=== PATIENT | female | born 1945 | race Hispanic/Latino ===

== ENCOUNTER 2018-04-28 18:34 | Emergency (ER) | payer MEDICARE, BC ==
[2018-04-28 19:06] LABS: #Lymphocytes 0.8 thou/uL (1.20-3.40); #Monocytes 0.8 thou/uL (0.11-0.59); #Neutrophils 8.8 thou/uL (1.40-6.50); %Basophils 0.1 % (0.0-1.0); %Eosinophils 0.4 % (0.0-10.0); %Lymphocytes 7.6 % (21.0-51.0); %Monocytes 7.5 % (0.0-10.0); %Neutrophils 84.4 % (42.0-75.0); Hemoglobin 16.3 g/dL (12.0-16.0); Mean Corpuscular HGB CONC 34.1 g/dL (32.0-36.0); Mean Corpuscular Hemoglobin 31.7 pg (27.0-31.0); Mean Corpuscular Volume 92.8 fL (78.0-98.0); Mean Platelet Volume 8.4 fL (7.4-10.4); Platelet Count 127 thou/uL (130-400); RBC Distribution Width 12.4 % (11.5-14.5); Red Blood Cell (RBC) Count 5.14 mill/uL (4.20-5.40); White Blood Cell (WBC) Count 10.4 thou/uL (4.8-10.8)
--- NOTE | 2018-04-28 19:18 | RAD ---
CHEST ONE VIEW: HISTORY: Cough. COMPARISON: 02/04/2016 FINDINGS: There is atherosclerosis of the aorta. Normal cardiac silhouette. Pulmonary vessels and hilum are n ormal. Costophrenic angles are clear. Increased interstitial opacities may be due to diminished leatha g volumes with resultant crowding of the interstitium. Edema and/or infiltrate cannot be excluded. No obvious pneumothorax. Limited evaluation of lung apices. IMPRESSION: Increased interstitial prominence, as above. POS: [facility]
[2018-04-28 19:27] LABS: ALT (SGPT) 24 U/L (8-55); AST (SGOT) 26 U/L (5-34); Albumin 4.1 g/dL (3.4-4.8); Alkaline Phosphatase 54 U/L (40-150); Anion Gap 15 mmol/L (10-20); BUN (Urea Nitrogen) 23 mg/dL (9.8-20.1); CK (CPK) 71 U/L (29-168); Calc. Creatinine Clearance 0 mL/min (70-130); Calcium 9.6 mg/dL (7.8-10.44); Carbon Dioxide 21 mmol/L (23-31); Chloride 105 mmol/L (98-107); Estimated GFR-MDRD 81; Globulin 3.3 g/dL (2.4-3.5); Glucose 96 mg/dL (80-115); Potassium 3.9 mmol/L (3.5-5.1); Protein, Total 7.4 g/dL (6.0-8.3); Sodium 137 mmol/L (136-145)
[2018-04-28 19:31] LABS: CKMB 1.4 ng/mL (0-6.6); Troponin I Less than 0.010 ng/mL (< 0.028)
--- NOTE | 2018-04-28 20:23 | MRI ---
MRI LUMBAR SPINE WITHOUT CONTRAST: HISTORY: Increased low back pain with inability to ambulate x1 week. COMPARISON: None. FINDINGS: Appropriate T1 marrow signal intensity of the lumbar vertebrae. Lumbar spine vertebral body height is maintained. There is no lumbar spine fracture. There is 2 mm of anterolisthesis of L3 upon L4. There is no significant STIR hyperintensity to sugge st vertebral body edema or ligamentous injury. There is degenerative change with loss of disk space height and osteophyte formation, along with subt le Schmorl's nodes, at the T12-L1 disk space. Appropriate signal intensity of the visualized solid organs and psoas muscles. The conus medullaris terminates at the mid T12 level. T11-T12: Minimal posterior disk bugle. No significant central canal stenosis. The neural foramina are patent. T12-L1: Moderate loss of disk space height. Generalized disk bulge without significant central caleb l stenosis. The right neural foramen is moderately narrowed. The left neural foramen is patent. L1-L2: Mild loss of disk space height and disk desiccation. Minimal generalized disk bulge. No sig nificant central canal stenosis. The neural foramina are patent bilaterally. L2-L3: Adequate disk hydration. No significant loss of disk space height. Small left and right par acentral disk bulges. Mild ligamentum flavum thickening and facet hypertrophy. Mild central canal s tenosis. The neural foramina are patent bilaterally. L3-L4: Desiccation with mild loss of disk space height. Broad-based disk bulge, ligamentum flavum t hickening, and facet hypertrophy result in mild central canal stenosis. The right neural foramen is patent. Mild left foraminal narrowing. L4-L5: Desiccation without significant loss of disk space height. Minimal generalized disk bulge, l igamentum flavum thickening, and facet hypertrophy. No significant central canal stenosis. The neur al foramina are patent bilaterally. L5-S1: Minimal disk desiccation without significant loss of disk space height. No significant centr al canal stenosis. The neural foramina are patent. IMPRESSION: 1. No significant central canal stenosis or significant neural foraminal narrowing. 2. Degenerative changes of the lumbar spine, as described above. POS: [facility]
== END 2018-04-29 00:11 ==
LOC: ERS 18:34
DX: M54.5 Low back pain (principal); R53.1 Weakness; E78.5 Hyperlipidemia, unspecified; I10 Essential (primary) hypertension; Z79.899 Other long term (current) drug therapy
CPT/HCPCS: 36415; 71045; 72148; 80053; 82553; 84484; 85025; 87804; 93005; 96360

== ENCOUNTER 2018-07-05 08:28 | Outpatient (CLI) | payer MEDICARE, BC ==
--- NOTE | 2018-07-05 10:54 | MRI ---
MRI BRAIN WITH AND WITHOUT CONTRAST: HISTORY: Parkinson disease. Difficulty walking since January 2018. TECHNIQUE: MRI brain is performed with and without intravenous Gadolinium administration. Multisequential, mult iplanar imaging is performed. FINDINGS: No hemorrhage on the axial gradient echo sequence. The calvarium has a normal T1 marrow signal intensity. Midline brain parenchymal structures are unre markable. Central arterial flow voids are maintained. Absent restricted diffusion. There is abnormal T2 and FLAIR white matter hyperintensity, along with sulcal effacement involving th e right temporal and frontal lobes. There is mass effect upon the right lateral ventricle. There is 1 cm of right to left subfalcine herniation. This mass effect is associated with an extraaxial mass that is centered in the right middle cranial fossa. There is evidence of dural enhancement. There also appears to be erosion of the right calvarium, at the level of the middle cranial fossa. The les ion is intrinsically isointense on the T2 weighted images. There is associated homogeneous enhanceme nt. The lesion measures 3.5 cm mediolateral x 2.9 cm anteroposterior x 2.6 cm craniocaudal. There i s a second extraaxial lesion that is right parafalcine in location. This lesion measures 1.9 x 1.6 x 1.7 cm. There is no significant mass effect or associated edema. A small focus of enhancement along the anterior aspect of the falx may represent a punctate meningiom a. There is abnormal enhancement in the right infratemporal fossa, expanding to the superior right masti cator space. There is also abnormal enhancement involving the lateral right orbital apex and extendi ng anteriorly to the extraconal space, laterally, on the right. There is right-sided exophthalmus. IMPRESSION: 1. Parafalcine/falcine meningiomas without associated mass effect or abnormality. 2. Extraaxial mass centered in the right middle cranial fossa, which has an aggressive appearance. There is associated mass effect and midline shift, as described above. There is extensive edema of t he right cerebrum. This lesion causes some erosive changes of the overlying calvarium. There is ext ension of this lesion into the right infratemporal fossa and superior right client account specialist space. Additi onally, there is extension of this lesion along the lateral aspect of the right orbit, as described a corin. Findings may represent malignant meningioma or hemangiopericytoma. A neurosurgical consultati on is recommended, given the degree of right to left subfalcine herniation, as well as extracranial i nvolvement. The results of the study were discussed with Dr. Andujar on 07/05/2018 at 10:01 a.m. CODE [facility] POS: [facility]
[2018-07-05] MEDS ORDERED: Gadobenate Dimeglumine 529 MG/1 ML (20ML VIAL) ONE (13:38)
--- NOTE | 2018-07-05 14:52 | NM ---
NUCLEAR MEDICINE BRAIN IMAGING: Date: 07/05/18 HISTORY: Parkinson's disease. TECHNIQUE: A DaTscan with axial tomographic images of the brain obtained 3 hours following the intravenous admin istration of 5.5 mCi iodine-123 Ioflupane. 130 mg of potassium iodide were given orally 1 hour prior to injection of the radiopharmaceutical. FINDINGS: There is normal, symmetric uptake in the striata bilaterally, demonstrating symmetric, crescent-shape d, focal regions of activity mirrored about the median plane. IMPRESSION: Normal exam. POS: [facility]
== END 2018-07-05 08:29 | disposition home or self-care (01) ==
LOC: MRI 08:28
PROVIDERS: ATTEND Psychiatry & Neurology Neurology
DX: G20 Parkinson's disease (principal); D32.0 Benign neoplasm of cerebral meninges; G93.5 Compression of brain
CPT/HCPCS: 70553; 78607; 82565; A9584; A9577

== ENCOUNTER 2018-07-25 00:12 | Outpatient (CLI) | payer MEDICARE, BC ==
[2018-07-25 11:48] LABS: Anion Gap 16 mmol/L (10-20); BUN (Urea Nitrogen) 39 mg/dL (9.8-20.1); Calc. Creatinine Clearance 0 mL/min (70-130); Calcium 9.2 mg/dL (7.8-10.44); Carbon Dioxide 23 mmol/L (23-31); Chloride 101 mmol/L (98-107); Estimated GFR-MDRD Greater than 90; Glucose 117 mg/dL (80-115); Potassium 4.5 mmol/L (3.5-5.1); Sodium 135 mmol/L (136-145)
[2018-07-25 12:29] LABS: Hemoglobin 17.5 g/dL (12.0-16.0); Mean Corpuscular HGB CONC 31.9 g/dL (32.0-36.0); Mean Corpuscular Hemoglobin 30.9 pg (27.0-31.0); Mean Corpuscular Volume 96.9 fL (78.0-98.0); Mean Platelet Volume 7.5 fL (7.4-10.4); Platelet Count 107 thou/uL (130-400); RBC Distribution Width 13.8 % (11.5-14.5); Red Blood Cell (RBC) Count 5.67 mill/uL (4.20-5.40); White Blood Cell (WBC) Count 14.5 thou/uL (4.8-10.8)
--- NOTE | 2018-07-26 08:03 | EKG ---
Test Reason : Blood Pressure : / mmHG Vent. Rate : 081 BPM Atrial Rate : 081 BPM P-R Int : 146 ms QRS Dur : 074 ms QT Int : 330 ms P-R-T Axes : 069 078 048 degrees QTc Int : 383 ms Normal sinus rhythm Normal ECG When compared with ECG of 28-APR-2018 18:47, No significant change was found Confirmed by HU COTTER ([id number]) on 07/26/2018 8:03:35 AM Referred By: MEME Confirmed By:HU COTTRE
== END 2018-07-25 00:13 | disposition home or self-care (01) ==
LOC: LABBT 00:12
PROVIDERS: ATTEND Neurological Surgery
DX: Z01.818 Encounter for other preprocedural examination (principal); D49.6 Neoplasm of unspecified behavior of brain
CPT/HCPCS: 80048; 85027; 93005; 93010

== ENCOUNTER 2018-07-25 10:00 | Inpatient (IN) | payer MEDICARE, BC ==
[2018-07-26] MEDS ORDERED: Bacitracin Zinc Ointment 30 gm TUBE ONE (06:26)
[2018-07-26] MEDS ORDERED: Fentanyl 100 MCG/2 ML VIAL ONE ×2 (07:06→10:40)
[2018-07-26] MEDS ORDERED: Fentanyl 250 MCG/5 ML VIAL ONE (07:06)
[2018-07-26] MEDS ORDERED: Mannitol 12.5 GM/50 ML ONE (07:51)
[2018-07-26] MEDS ORDERED: hydrALAZINE 20 MG/ML VIAL ONE (10:35)
[2018-07-26] MEDS ORDERED: Ondansetron HCl/PF 4 MG/2 ML Vial IVP PRN (11:20)
[2018-07-26] MEDS ORDERED: Promethazine HCl 25 MG/ML VIAL SLOW IVP PRN (11:20)
[2018-07-26] MEDS ORDERED: Promethazine HCl 25 MG/ML VIAL IM PRN ×2 (11:20→14:15)
--- NOTE | 2018-07-26 11:32 | OP ---
DATE OF PROCEDURE: 07/26/2018 THERAPY MANAGER: Triny Cornejo PA-C. PROCEDURES PERFORMED: Right supratentorial craniotomy, resection meningioma. DESCRIPTION OF PROCEDURE: The patient was brought to the operating room and intubated. She was positioned supine, head turned to the left on the Endy wet process miller head exposing the right frontotemporal region. Standard incision was made, and the scalp reflected anteriorly. Some abnormal specimen was identified beneath the temporalis muscle near the zygomatic arch. This was sent for pathology. We felt this was neoplastic or uncertain as to the nature of it. We did not attempt to resect any tissue outside the craniotomy exposure, but this did seem to be potentially some neoplasm extending inferiorly into the soft tissues of the facial region. We next performed a standard right frontotemporal craniotomy and immediately encountered very thickened hypervascular bone in the temporal region. The frontal craniotomy was removed in one piece, but the temporal craniotomy could not be given the thick nature of the bone. Some areas of bone were clearly invaded by neoplasm and another was only thickened and hypervascular. Ultimately, we drilled away the residual temporal bone to obtain adequate exposure with substantial difficulty involving substantial bleeding. We next opened the dura, which again was hypervascular and highly thickened in multiple locations. We sent additional specimen for frozen examination, which suggested a more benign neoplastic process consistent with meningioma; although, the pathologist expressed a high degree of uncertainty. We next circumferentially dissected tumor from brain and the tumor had a very good plane from the surrounding brain. We sequentially debulked tumor and developed the plane around the brain and ultimately, a gross total resection of intracranial tumor was achieved. We did remove the tumor as it invaded into the floor of the middle cranial fossa, but ultimately it did extend through the floor of the middle cranial fossa in several locations, where it could not be accessed. Maximum hemostasis was then secured with some difficulty given the hypervascular dura and surrounding tissues. The dura was then reapproximated with DuraGen artificial dura. The frontal skull was replaced with titanium micro plates and screws, and the wound was then closed in anatomic layers. Job ID: [id number]
[2018-07-26] MEDS ORDERED: Mag-Al 1200 mg/1200 mg/30 ML UDCUP PO PRN (14:15)
[2018-07-26] MEDS ORDERED: Ondansetron PF 4 MG/2 ML Vial IVP PRN (14:15)
[2018-07-26] MEDS ORDERED: diphenhydrAMINE 50 MG CAP PO PRN (14:15)
[2018-07-26] MEDS ORDERED: Acetaminophen 325 MG TAB PO PRN (14:15)
[2018-07-26] MEDS ORDERED: hydrALAZINE 20 MG/ML VIAL SLOW IVP PRN (14:15)
[2018-07-26] MEDS ORDERED: Docusate 100 MG CAP PO PRN (14:15)
[2018-07-26] MEDS ORDERED: Morphine 4 MG/ML VIAL SLOW IVP PRN (14:15)
[2018-07-26] MEDS ORDERED: Labetalol HCl 100 MG/20 ML VIAL SLOW IVP PRN (14:15)
[2018-07-26] MEDS ORDERED: diphenhydrAMINE 50 MG/ML VIAL IVP PRN (14:15)
[2018-07-26] MEDS ORDERED: Promethazine 25 MG TAB PO PRN (14:15)
[2018-07-26] MEDS ORDERED: Promethazine HCl 12.5 MG SUPP PR PRN (14:18)
[2018-07-26] MEDS ORDERED: Acetaminophen 650 MG Suppository PR PRN (14:24)
[2018-07-26] MEDS ORDERED: Morphine 2 MG/ML SYRINGE SLOW IVP PRN (14:30)
[2018-07-26] MEDS ORDERED: Lidocaine 1% PF 5 ML VIAL ONE (15:43)
[2018-07-26] MEDS ORDERED: Ondansetron PF 4 MG/2 ML Vial ONE (15:43)
[2018-07-26] MEDS ORDERED: Dexamethasone 20 MG/5 ML VIAL ONE (15:43)
[2018-07-26] MEDS ORDERED: Esmolol 100 MG/10 ML VIAL ONE (15:43)
[2018-07-26] MEDS ORDERED: Glycopyrrolate 0.2 MG/ML 5 ML SYRINGE ONE (15:43)
[2018-07-26] MEDS ORDERED: Ketorolac Tromethamine 30 MG/ML VIAL ONE (15:43)
[2018-07-26] MEDS ORDERED: Rocuronium Bromide 10 MG/ML (10ML VIAL) ONE (15:43)
[2018-07-26] MEDS ORDERED: PROPOFOL 200 MG/20 ML VIAL ONE (15:43)
[2018-07-26] MEDS: Sodium Chloride 0.9% 1,000 ML IV SCH ×2 (15:46→17:54)
[2018-07-26] MEDS: HYDROcodone/Acetaminophen 10/325 mg Tablet PO PRN (18:25)
[2018-07-26] MEDS ORDERED: Loratadine/Pseudoephedrine 10/240 mg Tablet PO PRN (19:54)
[2018-07-26] MEDS: Exemestane 25 MG TAB PO SCH (20:26)
[2018-07-26] MEDS: Calcium Carbonate + Vit D 1 TAB PO SCH (20:27)
[2018-07-26] MEDS: Acetaminophen ER (8hr) 650 MG TAB PO SCH (20:27)
[2018-07-26] MEDS ORDERED: Loratadine/Pseudoephedrine 10/240 mg Tablet PO SCH (21:00)
[2018-07-26] MEDS ORDERED: Famotidine/PF 20 mg/2ml Vial SLOW IVP SCH (21:00)
[2018-07-26] MEDS: CEFAZOLIN 2 GM in Premix Bag 1 BAG IVPB SCH (21:41)
[2018-07-26] MEDS: Famotidine 20 MG TAB PO SCH (21:41)
--- NOTE | 2018-07-26 21:57 | PDOC.PN ---
- Subjective Encounter Start Date: 07/26/18 Encounter Start Time: 19:00 Patient seen and examined for med mngt. No CP/SOB/Palpitations/focal neuro deficits. No new complaints. No overnight events - Objective MAR Reviewed: Yes Vital Signs & Weight: Vital Signs (12 hours) Temp Pulse Ox 07/26/18 18:55 95 07/26/18 15:00 98.4 F 07/26/18 14:30 95 Weight Weight 149 lb 14.629 oz Most Recent Monitor Data Heart Rate from ECG 74 NIBP 117/51 NIBP BP-Mean 73 Respiration from ECG 15 SpO2 96 I&O: 07/25/18 07/26/18 07/27/18 06:59 06:59 06:59 Intake Total 846 Output Total 525 Balance 321 Result Diagrams: 07/27/18 05:27 EKG Reviewed by me: Yes (Tele SR) Phys Exam - Physical Examination Constitutional: NAD Respiratory: no wheezing, no rhonchi Cardiovascular: RRR, no rub Gastrointestinal: soft, non-tender, positive bowel sounds Musculoskeletal: no edema Neurological: moves all 4 limbs Dx/Plan - Plan DVT proph w/SCDs 1. HTN 2. HLD 3. h/o Breast Ca 4. Obesity BMI 36.1 5. CKD 2 PLAN: Hold HCTZ Add low dose Lisinopril Cont current meds as below BMP in AM Will follow. Thank you for this consultation. Full code. DPOA - self Review of Systems - Review of Systems Respiratory: negative: Cough, Dry, Shortness of Breath, Hemoptysis, SOB with Excertion, Pleuritic Pain, Sputum, Wheezing Cardiovascular: negative: chest pain, palpitations, orthopnea, paroxysmal nocturnal dyspnea, edema, light headedness, other - Medications/Allergies Allergies/Adverse Reactions: Allergies Allergy/AdvReac Type Severity Reaction Status Date / Time tramadol Allergy Nausea Verified 07/25/18 10:30 Medications: Current Medications Acetaminophen (Tylenol) 650 mg PO Q4H PRN PRN Reason: HEADACHE, FEVER > 101 OR PAIN Acetaminophen (Tylenol Er (8hr Arthritis Pain)) 650 mg PO HS [facility] Last Admin: 07/26/18 20:27 Dose: 650 mg Acetaminophen (Tylenol) 650 mg [place] Q4H PRN PRN Reason: Headache/Fever/Mild Pain Hydrocodone Bitart/Acetaminophen (Neon 10/325) 1 tab PO Q4H PRN PRN Reason: Pain 4-6 Last Admin: 07/26/18 18:25 Dose: 1 tab Hydrocodone Bitart/Acetaminophen (Neon 10/325) 2 tab PO Q4H PRN PRN Reason: Pain 7-10 Al Hydroxide/Mg Hydroxide (Maalox) 30 ml PO Q6H PRN PRN Reason: Heartburn or Indigestion Ascorbic Acid (Vitamin C) 500 mg PO QAM [facility] Calcium/Vitamin D (Caltrate 600 + Vit D) 1 tab PO BID [facility] Last Admin: 07/26/18 20:27 Dose: 1 tab Cyanocobalamin (Vitamin B-12) 1,000 mcg PO QAM [facility] Diphenhydramine HCl (Benadryl) 50 mg PO HSPRN PRN PRN Reason: Itching & Insomnia Diphenhydramine HCl (Benadryl) 50 mg IVP Q6H PRN PRN Reason: Itching & Insomnia Docusate Sodium (Colace) 100 mg PO BIDPRN PRN PRN Reason: Constipation Exemestane (Aromasin) 25 mg PO HS [facility] Last Admin: 07/26/18 20:26 Dose: 25 mg Famotidine (Pepcid) 20 mg PO BID [facility] Last Admin: 07/26/18 21:41 Dose: 20 mg Hydralazine HCl (Apresoline) 5 mg SLOW IVP Q15MIN PRN PRN Reason: FOR SBP > 140 Sodium Chloride (Normal Saline 0.9%) 1,000 mls @ 75 mls/hr IV .[id number] [facility] Last Admin: 07/26/18 17:54 Dose: 1,000 mls Cefazolin Sodium/Dextrose 2 gm (/ Device) 50 mls @ 100 mls/hr IVPB Q8HR [facility] Stop: 07/27/18 06:29 Last Admin: 07/26/18 21:41 Dose: 50 mls Labetalol HCl (Labetalol Hcl) 10 mg SLOW IVP Q15MIN PRN PRN Reason: FOR SBP > 140 Lisinopril (Zestril) 10 mg PO DAILY [facility] Loratadine/Pseudoephedrine Sulfate (Claritin-D 24 Hour) 1 tab PO HS PRN PRN Reason: Congestion Morphine Sulfate (Morphine) 4 mg SLOW IVP Q1H PRN PRN Reason: SEVERE BREAKTHROUGH PAIN Morphine Sulfate (Morphine) 2 mg SLOW IVP Q1H PRN PRN Reason: FOR MOD BREAKTHROUGH PAIN Ondansetron HCl (Zofran) 4 mg IVP Q8H PRN PRN Reason: Nausea/Vomiting Promethazine HCl (Phenergan) 12.5 mg IM Q4H PRN PRN Reason: Nausea Promethazine HCl (Phenergan) 12.5 mg PO Q4H PRN PRN Reason: Nausea Promethazine HCl (Phenergan Suppository) 12.5 mg [place] Q4H PRN PRN Reason: Nausea Sodium Chloride (Flush - Normal Saline) 10 ml IVF Q12HR [facility] Last Admin: 07/26/18 21:41 Dose: 10 ml Sodium Chloride (Flush - Normal Saline) 10 ml IVF PRN PRN PRN Reason: Saline Flush
[2018-07-27 06:10] VITALS: BMI 36.1
[2018-07-27] MEDS: CEFAZOLIN 2 GM in Premix Bag 1 BAG IVPB SCH (06:12)
--- NOTE | 2018-07-27 06:27 | PRG ---
DATE OF SERVICE: SUBJECTIVE: The patient is a 72-year-old female, postoperative day #1, status post craniotomy with right temporal tumor resection. Following the surgery, she was transitioned to the ICU, where she was monitored closely and her pain was well controlled with p.o. medications. She did have initially high urine output; however, this was not unexpected secondary to mannitol given in the OR. Her blood pressure has remained well controlled and is currently 126/99. The patient is tolerating a regular diet. She does have a Danielson catheter still in place. She was able to get up to the side of the bed this morning without any difficulty. PHYSICAL EXAMINATION: GENERAL: The patient is awake and alert, oriented x4. HEENT: Pupils are equal and reactive to light. She does have some ecchymosis and soft tissue swelling on the right side of the face. EXTREMITIES: She has free active range of motion of all extremities. NEUROLOGIC: No focal motor weakness is appreciated. PLAN: We will plan to remove the patient's Danielson catheter and transition her to the floor later today. We will have her work with physical and occupational therapy with possible need for inpatient rehabilitation depending on her progress. We have also discussed possibly will be able to go home with Home Health. Job ID: [id number]
[2018-07-27 06:52] LABS: Anion Gap 10 mmol/L (10-20); BUN (Urea Nitrogen) 20 mg/dL (9.8-20.1); Calc. Creatinine Clearance 88 mL/min (70-130); Calcium 8.2 mg/dL (7.8-10.44); Carbon Dioxide 27 mmol/L (23-31); Chloride 101 mmol/L (98-107); Estimated GFR-MDRD Greater than 90; Glucose 144 mg/dL (80-115); Magnesium 1.9 mg/dL (1.6-2.6); Potassium 4.3 mmol/L (3.5-5.1); Sodium 134 mmol/L (136-145)
--- NOTE | 2018-07-27 07:42 | CT ---
CT OF HEAD: INDICATION: Status post craniotomy. FINDINGS: Evidence of a right frontoparietal craniotomy with underlying pneumocephalus and evidence of resectio n of a previously documented mass within the right middle cranial fossa. There is postoperative bloo d, air, and edema of the anterior to right temporal lobe resection bed. There is overlying extraaxia l blood and air with associated mass effect and sulcal effacement. Extraaxial collection underlying craniotomy flap measured approximately 1 cm in thickness. Leftward midline shift at the level of sep kenzie pellucidum measures 7 mm. Redemonstration of heavily calcified meningioma at the anterior right parafalcine region. The ventricular system is effaced and displaced as a result of prominent degree of postoperative osmar a. There is marked osseous hypertrophy of the right skull base adjacent site of the previous mass. IMPRESSION: 1. Postoperative findings with a prominent degree of cerebral edema producing mass effect and midlin e shift as discussed above. There is also postoperative hematoma, both intraaxial and extraaxial. 2. Heavily calcified right parafalcine meningioma remains. Recommend continued followup. POS: [facility]
[2018-07-27] MEDS ORDERED: Hydrochlorothiazide 25 MG TAB PO SCH (09:00)
[2018-07-27] MEDS: Sodium Chloride 0.9% 1,000 ML IV SCH (09:02)
[2018-07-27] MEDS: Cyanocobalamin (Vitamin B-12) 1,000 MCG TAB PO SCH (09:04)
[2018-07-27] MEDS: Calcium Carbonate + Vit D 1 TAB PO SCH ×2 (09:04→22:41)
[2018-07-27] MEDS: Famotidine 20 MG TAB PO SCH ×2 (09:05→22:41)
[2018-07-27] MEDS: Lisinopril 10 MG TAB PO SCH (09:07)
[2018-07-27] MEDS: Ascorbic Acid 500 mg Chewable Tablet PO SCH (09:08)
[2018-07-27] MEDS: HYDROcodone/Acetaminophen 10/325 mg Tablet PO PRN (14:19)
--- NOTE | 2018-07-27 19:00 | PDOC.PN ---
- Subjective Encounter Start Date: 07/27/18 Encounter Start Time: 09:30 Patient seen and examined for med mngt. No new complaints. No new focal deficits. No overnight events - Objective MAR Reviewed: Yes Vital Signs & Weight: Vital Signs (12 hours) Temp Pulse Pulse BP BP BP Pulse Ox 07/27/18 16:15 97 07/27/18 11:00 98.1 F 07/27/18 10:20 70 90 124/62 149/58 H 07/27/18 10:19 75 124/58 L 149/58 H 07/27/18 09:07 108/54 L 07/27/18 08:00 87 L 07/27/18 07:00 98.4 F Weight Weight 149 lb 14.629 oz Most Recent Monitor Data Heart Rate from ECG 83 NIBP 134/59 NIBP BP-Mean 84 Respiration from ECG 18 SpO2 96 I&O: 07/26/18 07/27/18 07/28/18 06:59 06:59 06:59 Intake Total 1246 750 Output Total 1200 595 Balance 46 155 Result Diagrams: 07/27/18 05:27 EKG Reviewed by me: Yes (Tele SR) Phys Exam - Physical Examination Constitutional: NAD Respiratory: no wheezing, no rhonchi Cardiovascular: RRR, no rub Gastrointestinal: soft, non-tender, positive bowel sounds Musculoskeletal: no edema Dx/Plan - Plan DVT proph w/SCDs 1. HTN 2. HLD 3. h/o Breast Ca 4. Obesity BMI 36.1 5. CKD 2 PLAN: HCTZ on hold Cont low dose Lisinopril Cont current meds as below Review of Systems - Review of Systems Respiratory: negative: Cough, Dry, Shortness of Breath, Hemoptysis, SOB with Excertion, Pleuritic Pain, Sputum, Wheezing Cardiovascular: negative: chest pain, palpitations, orthopnea, paroxysmal nocturnal dyspnea, edema, light headedness, other - Medications/Allergies Allergies/Adverse Reactions: Allergies Allergy/AdvReac Type Severity Reaction Status Date / Time tramadol Allergy Nausea Verified 07/25/18 10:30 Medications: Current Medications Acetaminophen (Tylenol) 650 mg PO Q4H PRN PRN Reason: HEADACHE, FEVER > 101 OR PAIN Acetaminophen (Tylenol Er (8hr Arthritis Pain)) 650 mg PO HS [facility] Last Admin: 07/26/18 20:27 Dose: 650 mg Acetaminophen (Tylenol) 650 mg [place] Q4H PRN PRN Reason: Headache/Fever/Mild Pain Hydrocodone Bitart/Acetaminophen ([employer] 10/325) 1 tab PO Q4H PRN PRN Reason: Pain 4-6 Last Admin: 07/26/18 18:25 Dose: 1 tab Hydrocodone Bitart/Acetaminophen ([employer] 10/325) 2 tab PO Q4H PRN PRN Reason: Pain 7-10 Last Admin: 07/27/18 14:19 Dose: 2 tab Al Hydroxide/Mg Hydroxide (Maalox) 30 ml PO Q6H PRN PRN Reason: Heartburn or Indigestion Ascorbic Acid (Vitamin C) 500 mg PO QAM [facility] Last Admin: 07/27/18 09:08 Dose: 500 mg Calcium/Vitamin D (Caltrate 600 + Vit D) 1 tab PO BID [facility] Last Admin: 07/27/18 09:04 Dose: 1 tab Cyanocobalamin (Vitamin B-12) 1,000 mcg PO QAM [facility] Last Admin: 07/27/18 09:04 Dose: 1,000 mcg Diphenhydramine HCl (Benadryl) 50 mg PO HSPRN PRN PRN Reason: Itching & Insomnia Diphenhydramine HCl (Benadryl) 50 mg IVP Q6H PRN PRN Reason: Itching & Insomnia Docusate Sodium (Colace) 100 mg PO BIDPRN PRN PRN Reason: Constipation Exemestane (Aromasin) 25 mg PO HS [facility] Last Admin: 07/26/18 20:26 Dose: 25 mg Famotidine (Pepcid) 20 mg PO BID [facility] Last Admin: 07/27/18 09:05 Dose: 20 mg Hydralazine HCl (Apresoline) 5 mg SLOW IVP Q15MIN PRN PRN Reason: FOR SBP > 140 Labetalol HCl (Labetalol Hcl) 10 mg SLOW IVP Q15MIN PRN PRN Reason: FOR SBP > 140 Lisinopril (Zestril) 10 mg PO DAILY [facility] Last Admin: 07/27/18 09:07 Dose: 10 mg Loratadine/Pseudoephedrine Sulfate (Claritin-D 24 Hour) 1 tab PO HS PRN PRN Reason: Congestion Morphine Sulfate (Morphine) 4 mg SLOW IVP Q1H PRN PRN Reason: SEVERE BREAKTHROUGH PAIN Morphine Sulfate (Morphine) 2 mg SLOW IVP Q1H PRN PRN Reason: FOR MOD BREAKTHROUGH PAIN Ondansetron HCl (Zofran) 4 mg IVP Q8H PRN PRN Reason: Nausea/Vomiting Promethazine HCl (Phenergan) 12.5 mg IM Q4H PRN PRN Reason: Nausea Promethazine HCl (Phenergan) 12.5 mg PO Q4H PRN PRN Reason: Nausea Promethazine HCl (Phenergan Suppository) 12.5 mg [place] Q4H PRN PRN Reason: Nausea Sodium Chloride (Flush - Normal Saline) 10 ml IVF Q12HR [facility] Last Admin: 07/27/18 09:10 Dose: 10 ml Sodium Chloride (Flush - Normal Saline) 10 ml IVF PRN PRN PRN Reason: Saline Flush
[2018-07-27] MEDS: Acetaminophen ER (8hr) 650 MG TAB PO SCH (22:41)
[2018-07-27] MEDS: Exemestane 25 MG TAB PO SCH (22:42)
[2018-07-28] MEDS: Famotidine 20 MG TAB PO SCH ×2 (08:34→21:17)
[2018-07-28] MEDS: Ascorbic Acid 500 mg Chewable Tablet PO SCH (08:34)
[2018-07-28] MEDS: Lisinopril 10 MG TAB PO SCH (08:34)
[2018-07-28] MEDS: Cyanocobalamin (Vitamin B-12) 1,000 MCG TAB PO SCH (08:35)
[2018-07-28] MEDS: Calcium Carbonate + Vit D 1 TAB PO SCH ×2 (08:35→21:17)
--- NOTE | 2018-07-28 10:12 | PDOC.PN ---
- Subjective Encounter Start Date: 07/28/18 Encounter Start Time: 07:45 -: old records requested/rev Patient seen and examined. No new complaints. No overnight events she has mild surgical pain, no fever, no headache - Objective MAR Reviewed: Yes Vital Signs & Weight: Vital Signs (12 hours) Temp Pulse Resp BP BP Pulse Ox 07/28/18 08:34 130/69 07/28/18 07:59 98.5 F 66 12 130/69 96 07/28/18 04:00 99.7 F H 70 16 126/78 94 L 07/28/18 00:00 98.6 F 99 16 127/74 94 L Weight Weight 149 lb 14.629 oz Most Recent Monitor Data Heart Rate from ECG 83 NIBP 134/59 NIBP BP-Mean 84 Respiration from ECG 18 SpO2 96 I&O: 07/27/18 07/28/18 07/29/18 06:59 06:59 06:59 Intake Total 1246 750 Output Total 1200 595 Balance 46 155 Result Diagrams: 07/27/18 05:27 Radiology Reviewed by me: Yes (CT brain noted) Phys Exam - Physical Examination Constitutional: NAD HEENT: moist MMs, sclera anicteric right raccoon eye Neck: no nodes, no JVD, supple Respiratory: no wheezing, no rales, no rhonchi Cardiovascular: RRR, no significant murmur, no rub Gastrointestinal: soft, non-tender, no distention, positive bowel sounds obesity+ Musculoskeletal: no edema, pulses present SCD+ Neurological: non-focal, normal sensation Lymphatic: no nodes Psychiatric: normal affect, A&O x 3 Skin: no rash, normal turgor Dx/Plan (1) S/P resection of meningioma Code(s): Z98.890 - OTHER SPECIFIED POSTPROCEDURAL STATES; Z86.018 - PERSONAL HISTORY OF OTHER BENIGN NEOPLASM Status: Acute (2) Status post craniotomy Status: Acute (3) CKD (chronic kidney disease) stage 2, GFR 60-89 ml/min Code(s): N18.2 - CHRONIC KIDNEY DISEASE, STAGE 2 (MILD) Status: Chronic (4) HLD (hyperlipidemia) Code(s): E78.5 - HYPERLIPIDEMIA, UNSPECIFIED Status: Chronic (5) HTN (hypertension) Code(s): I10 - ESSENTIAL (PRIMARY) HYPERTENSION Status: Chronic (6) Obesity (BMI 30-39.9) Code(s): E66.9 - OBESITY, UNSPECIFIED Status: Chronic - Plan cont current plan of care, PT/OT, licensed social worker, DVT proph w/SCDs * continue post operative care as per neurosurgeon * medically stable with current treatment * medication reviewed as below * symptomatic treatment. * discharge planning Review of Systems - Review of Systems ENT: negative: Ear Pain, Ear Discharge, Nose Pain, Nose Discharge, Nose Congestion, Mouth Pain, Mouth Swelling, Throat Pain, Throat Swelling, Other Respiratory: negative: Cough, Dry, Shortness of Breath, Hemoptysis, SOB with Excertion, Pleuritic Pain, Sputum, Wheezing Cardiovascular: negative: chest pain, palpitations, orthopnea, paroxysmal nocturnal dyspnea, edema, light headedness, other Gastrointestinal: negative: Nausea, Vomiting, Abdominal Pain, Diarrhea, Constipation, Melena, Hematochezia, Other Genitourinary: negative: Dysuria, Frequency, Incontinence, Hematuria, Retention , Other Musculoskeletal: negative: Neck Pain, Shoulder Pain, Arm Pain, Back Pain, Hand Pain, Leg Pain, Foot Pain, Other Skin: negative: Rash, Lesions, Andrea, Bruising, Other - Medications/Allergies Allergies/Adverse Reactions: Allergies Allergy/AdvReac Type Severity Reaction Status Date / Time tramadol Allergy Nausea Verified 07/25/18 10:30 Medications: Current Medications Acetaminophen (Tylenol) 650 mg PO Q4H PRN PRN Reason: HEADACHE, FEVER > 101 OR PAIN Acetaminophen (Tylenol Er (8hr Arthritis Pain)) 650 mg PO [facility] Last Admin: 07/27/18 22:41 Dose: 650 mg Acetaminophen (Tylenol) 650 mg SD Q4H PRN PRN Reason: Headache/Fever/Mild Pain Hydrocodone Bitart/Acetaminophen ([place] 10/325) 1 tab PO Q4H PRN PRN Reason: Pain 4-6 Last Admin: 07/26/18 18:25 Dose: 1 tab Hydrocodone Bitart/Acetaminophen ([place] 10/325) 2 tab PO Q4H PRN PRN Reason: Pain 7-10 Last Admin: 07/27/18 14:19 Dose: 2 tab Al Hydroxide/Mg Hydroxide (Maalox) 30 ml PO Q6H PRN PRN Reason: Heartburn or Indigestion Ascorbic Acid (Vitamin C) [address] [facility] Last Admin: 07/28/18 08:34 Dose: 500 mg Calcium/Vitamin D (Caltrate 600 + Vit D) 1 tab PO BID [facility] Last Admin: 07/28/18 08:35 Dose: 1 tab Cyanocobalamin (Vitamin B-12) 1,000 mcg PO QAM [facility] Last Admin: 07/28/18 08:35 Dose: 1,000 mcg Diphenhydramine HCl (Benadryl) 50 mg PO HSPRN PRN PRN Reason: Itching & Insomnia Diphenhydramine HCl (Benadryl) 50 mg IVP Q6H PRN PRN Reason: Itching & Insomnia Docusate Sodium (Colace) 100 mg PO BIDPRN PRN PRN Reason: Constipation Exemestane (Aromasin) 25 mg PO HS [facility] Last Admin: 07/27/18 22:42 Dose: 25 mg Famotidine (Pepcid) 20 mg PO BID [facility] Last Admin: 07/28/18 08:34 Dose: 20 mg Hydralazine HCl (Apresoline) 5 mg SLOW IVP Q15MIN PRN PRN Reason: FOR SBP > 140 Labetalol HCl (Labetalol Hcl) 10 mg SLOW IVP Q15MIN PRN PRN Reason: FOR SBP > 140 Lisinopril (Zestril) 10 mg PO DAILY [facility] Last Admin: 07/28/18 08:34 Dose: 10 mg Loratadine/Pseudoephedrine Sulfate (Claritin-D 24 Hour) 1 tab PO HS PRN PRN Reason: Congestion Morphine Sulfate (Morphine) 4 mg SLOW IVP Q1H PRN PRN Reason: SEVERE BREAKTHROUGH PAIN Morphine Sulfate (Morphine) 2 mg SLOW IVP Q1H PRN PRN Reason: FOR MOD BREAKTHROUGH PAIN Ondansetron HCl (Zofran) 4 mg IVP Q8H PRN PRN Reason: Nausea/Vomiting Promethazine HCl (Phenergan) 12.5 mg IM Q4H PRN PRN Reason: Nausea Promethazine HCl (Phenergan) 12.5 mg PO Q4H PRN PRN Reason: Nausea Promethazine HCl (Phenergan Suppository) 12.5 mg SD Q4H PRN PRN Reason: Nausea Sodium Chloride (Flush - Normal Saline) 10 ml IVF Q12HR [facility] Last Admin: 02/21/19 22:45 Dose: 10 ml Sodium Chloride (Flush - Normal Saline) 10 ml IVF PRN PRN PRN Reason: Saline Flush
[2018-07-28] MEDS: Exemestane 25 MG TAB PO SCH (21:17)
[2018-07-28] MEDS: Acetaminophen ER (8hr) 650 MG TAB PO SCH (21:17)
[2018-07-28] MEDS: HYDROcodone/Acetaminophen 10/325 mg Tablet PO PRN (22:41)
[2018-07-29 08:12] LABS: #Basophils 0.1 thou/uL (0.0-0.2); #Eosinphils 0.2 thou/uL (0.0-0.7); #Lymphocytes 2.2 thou/uL (1.20-3.40); #Monocytes 0.6 thou/uL (0.11-0.59); #Neutrophils 6.2 thou/uL (1.40-6.50); %Basophils 0.7 % (0.0-1.0); %Eosinophils 2.6 % (0.0-10.0); %Lymphocytes 23.5 % (21.0-51.0); %Monocytes 6.3 % (0.0-10.0); %Neutrophils 66.9 % (42.0-75.0); Hemoglobin 13.7 g/dL (12.0-16.0); Mean Corpuscular HGB CONC 31.9 g/dL (32.0-36.0); Mean Corpuscular Hemoglobin 31.9 pg (27.0-31.0); Mean Platelet Volume 7.6 fL (7.4-10.4); Platelet Count 107 thou/uL (130-400); RBC Distribution Width 14.3 % (11.5-14.5); Red Blood Cell (RBC) Count 4.29 mill/uL (4.20-5.40); White Blood Cell (WBC) Count 9.2 thou/uL (4.8-10.8)
[2018-07-29 08:22] LABS: ALT (SGPT) 35 U/L (8-55); AST (SGOT) 23 U/L (5-34); Albumin 3.2 g/dL (3.4-4.8); Alkaline Phosphatase 42 U/L (40-150); Anion Gap 11 mmol/L (10-20); BUN (Urea Nitrogen) 23 mg/dL (9.8-20.1); Bilirubin, Total 0.7 mg/dL (0.2-1.2); Calc. Creatinine Clearance 102 mL/min (70-130); Calcium 9.1 mg/dL (7.8-10.44); Carbon Dioxide 26 mmol/L (23-31); Chloride 104 mmol/L (98-107); Estimated GFR-MDRD Greater than 90; Globulin 2.4 g/dL (2.4-3.5); Glucose 103 mg/dL (80-115); Potassium 4.2 mmol/L (3.5-5.1); Protein, Total 5.6 g/dL (6.0-8.3); Sodium 137 mmol/L (136-145)
[2018-07-29] MEDS: Lisinopril 10 MG TAB PO SCH (08:50)
[2018-07-29] MEDS: Calcium Carbonate + Vit D 1 TAB PO SCH (08:50)
[2018-07-29] MEDS: Famotidine 20 MG TAB PO SCH (08:51)
[2018-07-29] MEDS: Cyanocobalamin (Vitamin B-12) 1,000 MCG TAB PO SCH (08:51)
[2018-07-29] MEDS: Ascorbic Acid 500 mg Chewable Tablet PO SCH (08:51)
--- NOTE | 2018-07-29 09:58 | PDOC.PN ---
- Subjective Encounter Start Date: 07/29/18 Encounter Start Time: 08:30 Patient seen and examined. No new complaints. No overnight events - Objective MAR Reviewed: Yes Vital Signs & Weight: Vital Signs (12 hours) Temp Pulse Resp BP BP Pulse Ox 07/29/18 08:50 141/84 H 07/29/18 07:02 98.6 F 64 16 141/84 H 93 L 07/29/18 04:00 98.3 F 67 20 134/70 94 L 07/29/18 00:00 98.8 F 72 20 131/81 95 Weight Weight 149 lb 14.629 oz Most Recent Monitor Data Heart Rate from ECG 83 NIBP 134/59 NIBP BP-Mean 84 Respiration from ECG 18 SpO2 96 I&O: 07/28/18 07/29/18 07/30/18 06:59 06:59 06:59 Intake Total 750 480 Output Total 595 Balance 155 480 Result Diagrams: 07/29/18 07:50 07/29/18 07:50 Phys Exam - Physical Examination Constitutional: NAD HEENT: PERRLA, moist MMs, sclera anicteric right raccoon eye Neck: no JVD, supple Respiratory: no wheezing, no rales, no rhonchi Cardiovascular: RRR, no significant murmur, no rub Gastrointestinal: soft, non-tender, no distention, positive bowel sounds Musculoskeletal: no edema, pulses present Neurological: non-focal, normal sensation Lymphatic: no nodes Psychiatric: normal affect, A&O x 3 Skin: no rash, normal turgor Dx/Plan (1) S/P resection of meningioma Code(s): Z98.890 - OTHER SPECIFIED POSTPROCEDURAL STATES; Z86.018 - PERSONAL HISTORY OF OTHER BENIGN NEOPLASM Status: Acute (2) Status post craniotomy Status: Acute (3) CKD (chronic kidney disease) stage 2, GFR 60-89 ml/min Code(s): N18.2 - CHRONIC KIDNEY DISEASE, STAGE 2 (MILD) Status: Chronic (4) HLD (hyperlipidemia) Code(s): E78.5 - HYPERLIPIDEMIA, UNSPECIFIED Status: Chronic (5) HTN (hypertension) Code(s): I10 - ESSENTIAL (PRIMARY) HYPERTENSION Status: Chronic (6) Obesity (BMI 30-39.9) Code(s): E66.9 - OBESITY, UNSPECIFIED Status: Chronic - Plan cont current plan of care * medication reviewed as below * symptomatic treatment * medically stable and doing OK * discharge as per primary team. Review of Systems - Review of Systems ENT: negative: Ear Pain, Ear Discharge, Nose Pain, Nose Discharge, Nose Congestion, Mouth Pain, Mouth Swelling, Throat Pain, Throat Swelling, Other Respiratory: negative: Cough, Dry, Shortness of Breath, Hemoptysis, SOB with Excertion, Pleuritic Pain, Sputum, Wheezing Cardiovascular: negative: chest pain, palpitations, orthopnea, paroxysmal nocturnal dyspnea, edema, light headedness, other Gastrointestinal: negative: Nausea, Vomiting, Abdominal Pain, Diarrhea, Constipation, Melena, Hematochezia, Other Genitourinary: negative: Dysuria, Frequency, Incontinence, Hematuria, Retention , Other Musculoskeletal: negative: Neck Pain, Shoulder Pain, Arm Pain, Back Pain, Hand Pain, Leg Pain, Foot Pain, Other - Medications/Allergies Allergies/Adverse Reactions: Allergies Allergy/AdvReac Type Severity Reaction Status Date / Time tramadol Allergy Nausea Verified 07/25/18 10:30 Medications: Current Medications Acetaminophen (Tylenol) 650 mg PO Q4H PRN PRN Reason: HEADACHE, FEVER > 101 OR PAIN Acetaminophen (Tylenol Er (8hr Arthritis Pain)) 650 mg PO [facility] Last Admin: 07/28/18 21:17 Dose: 650 mg Acetaminophen (Tylenol) 650 mg IN Q4H PRN PRN Reason: Headache/Fever/Mild Pain Hydrocodone Bitart/Acetaminophen ([place] 10/325) 1 tab PO Q4H PRN PRN Reason: Pain 4-6 Last Admin: 07/26/18 18:25 Dose: 1 tab Hydrocodone Bitart/Acetaminophen ([place] 10/325) 2 tab PO Q4H PRN PRN Reason: Pain 7-10 Last Admin: 07/28/18 22:41 Dose: 2 tab Al Hydroxide/Mg Hydroxide (Maalox) 30 ml PO Q6H PRN PRN Reason: Heartburn or Indigestion [facility]ic [facility] ([facility]itamin C) [facility] Last Admin: 07/29/18 08:51 Dose: 500 mg Calcium/Vitamin D (Caltrate 600 + Vit D) 1 tab PO BID [facility] Last Admin: 07/29/18 08:50 Dose: 1 tab Cyanocobalamin (Vitamin B-12) 1,000 [facility]cg [facility] Last Admin: 07/29/18 08:51 Dose: 1,000 mcg Diphenhydramine HCl (Benadryl) 50 mg PO HSPRN PRN PRN Reason: Itching & Insomnia Diphenhydramine HCl (Benadryl) 50 mg IVP Q6H PRN PRN Reason: Itching & Insomnia Docusate Sodium (Colace) 100 mg PO BIDPRN PRN PRN Reason: Constipation Exemestane (Aromasin) 25 mg PO HS [facility] Last Admin: 07/28/18 21:17 Dose: 25 mg Famotidine (Pepcid) 20 mg PO BID [facility] Last Admin: 07/29/18 08:51 Dose: 20 mg Hydralazine HCl (Apresoline) 5 mg SLOW IVP Q15MIN PRN PRN Reason: FOR SBP > 140 Labetalol HCl (Labetalol Hcl) 10 mg SLOW IVP Q15MIN PRN PRN Reason: FOR SBP > 140 Lisinopril (Zestril) 10 mg PO DAILY [facility] Last Admin: 07/29/18 08:50 Dose: 10 mg Loratadine/Pseudoephedrine Sulfate (Claritin-D 24 Hour) 1 tab PO HS PRN PRN Reason: Congestion Morphine Sulfate (Morphine) 4 mg SLOW IVP Q1H PRN PRN Reason: SEVERE BREAKTHROUGH PAIN Morphine Sulfate (Morphine) 2 mg SLOW IVP Q1H PRN PRN Reason: FOR MOD BREAKTHROUGH PAIN Ondansetron HCl (Zofran) 4 mg IVP Q8H PRN PRN Reason: Nausea/Vomiting Promethazine HCl (Phenergan) 12.5 mg IM Q4H PRN PRN Reason: Nausea Promethazine HCl (Phenergan) 12.5 mg PO Q4H PRN PRN Reason: Nausea Promethazine HCl (Phenergan Suppository) 12.5 mg IN Q4H PRN PRN Reason: Nausea Sodium Chloride (Flush - Normal Saline) 10 ml IVF Q12HR [facility] Last Admin: 07/28/18 21:18 Dose: 10 ml Sodium Chloride (Flush - Normal Saline) 10 ml IVF PRN PRN PRN Reason: Saline Flush
[2018-07-29 11:44] VITALS: BP 137/79; TEMP 98.9
[2018-07-29] MEDS: HYDROcodone/Acetaminophen 10/325 mg Tablet PO PRN (16:24)
--- NOTE | 2018-07-31 07:24 | DIS ---
DATE OF ADMISSION: 07/26/2018 DATE OF DISCHARGE: 07/29/2018 PRIMARY CARE PHYSICIAN: Dr. Marquis Fang. DISCHARGE DISPOSITION: Home. PRIMARY DISCHARGE DIAGNOSES: Status post craniotomy, status post resection of meningioma. SECONDARY DISCHARGE DIAGNOSES: Obesity with BMI 33, hypertension, dyslipidemia, chronic kidney disease stage 2. PRIMARY PROCEDURE/OPERATION: Craniotomy and resection of meningioma. RADIOLOGICAL INVESTIGATION: CT brain. SIGNIFICANT LABORATORY DATA: Hemoglobin 13.7, creatinine 0.55. Electrolytes and LFT normal. DISCHARGE MEDICATIONS: 1. [place] 1 tablet q.6 hourly p.r.n. 2. Vitamin C 500 mg p.o. daily. 3. Calcium with vitamin D 1 tablet p.o. daily. 4. Vitamin B12 of 1000 mcg p.o. daily. 5. Exemestane 25 mg p.o. at bedtime. 6. Dexamethasone 2 mg p.o. b.i.d. as directed. 7. Jud one tablet at bedtime as needed. 8. Hydrochlorothiazide 25 mg p.o. daily. 9. Lisinopril 40 mg p.o. daily. 10. Multivitamin 1 tablet daily. 11. Pyridoxine 50 mg daily. 12. Ocuvite one capsule p.o. daily. CONTRAINDICATION: None. CODE STATUS: Full code. INPATIENT TRANSFORMER MAKER: Dr. Gill was primary while in the hospital. Sound Team was consulted for medical management. ALLERGIES: TRAMADOL. DISCHARGE PLAN: Post hospital, the patient will follow up with primary care physician and Dr. Gill as instructed. HOSPITAL COURSE: A 72-year-old female, who was admitted by Dr. Gill. The patient underwent craniotomy and resection of meningioma. Postoperatively, Sound Team was following for medical management. The patient's medical problems remained stable. The patient did very well after surgery. She was planned for discharge to home with home health. The patient was seen and examined on the day of discharge. Please see my progress note from that day. Job ID: [id number]
== END 2018-07-29 16:40 | disposition home health service (06) | DRG 26 ==
LOC: SURG A 07-26 05:55 → CCU 07-26 12:41 → SJJU 07-27 16:11
PROVIDERS: ADMIT Neurological Surgery; ATTEND Neurological Surgery
PROC: 00B10ZZ Excision of Cerebral Meninges, Open Approach (ICD-10-PCS; principal; 2018-07-26)
PROC: 0KB00ZZ Excision of Head Muscle, Open Approach (ICD-10-PCS; 2018-07-26)
DX: D32.0 Benign neoplasm of cerebral meninges (principal); G81.94 Hemiplegia, unspecified affecting left nondominant side; M79.9 Soft tissue disorder, unspecified; R26.89 Other abnormalities of gait and mobility; I12.9 Hypertensive chronic kidney disease with stage 1 through stage 4 chronic kidney disease, or unspecified chronic kidney disease; N18.2 Chronic kidney disease, stage 2 (mild); E78.5 Hyperlipidemia, unspecified; E66.9 Obesity, unspecified; Z68.33 Body mass index [BMI] 33.0-33.9, adult; Z85.3 Personal history of malignant neoplasm of breast
CPT/HCPCS: 36415; 70450; 80048; 80053; 83735; 85025; 85027; 86850; 86900; 86901; 88307; 88325; 88331; 88334; 88341; 88342; 88360; 93005; 93010; C1713; J0360; J1100; J1885; J2001; J2150; J2270; J2405; J2704; J3010; J3490; S0028

== ENCOUNTER 2018-09-19 09:46 | Outpatient (CLI) | payer MEDICARE, BC ==
[2018-09-19 11:33] LABS: Estimated GFR-MDRD - POC Greater than 90
--- NOTE | 2018-09-19 11:37 | MRI ---
BRAIN MRI WITH AND WITHOUT CONTRAST: Reference is made to prior MRI brain exams dating back to July 05, 2018 INDICATION: Benign neoplasm, meningioma, follow-up for radiation planning FINDINGS: There remains postoperative alteration of the right middle cranial fossa with a presumed postoperativ e fluid collection with peripheral enhancement and restricted diffusion occupying the right middle cranial fossa, abutting the anterior pole of the right temporal lobe with associated vasogenic edema. The degree of edema has decreased. Redemonstration of hyperostosis of the right hemifacial bones as well as extension of signal abnormality into the superior aspect of the right jogger operator space. Ma sslike signal alteration is more conspicuous, given the degree of decreasing edema. The mass does invade the right middle cranial fossa, as it encompasses both the inner table and outer table of the right sphenoid bone. Axial dimension of the mass is approximately 3.8 cm AP x 4 cm transverse. Mass does traverse the lateral wall of the right orbit invading the lateral extraconal space, medially dev iating the lateral rectus muscle. There is also extension to the level of the right cavernous sinus. Associated pachymeningeal thickening and enhancement overlying the right cerebrum remains. Red emonstration of right parafalcine meningioma at the vertex. IMPRESSION: Persistent complex presumed postoperative fluid collection occupying the right middle cranial fossa a s has been recently described. There is decreasing edema. Underlying residual extraaxial mass does involve the middle cranial fossa, traversing the right sphen oid bone into the cephalad aspect of the right jogger operator space with associated, reactive hyperostosis. Involvement of the lateral aspect of the right orbit and encroachment upon the right ca vernous sinus is also demonstrated. Telephone call findings placed to the patient's physician, Haresh Villalobos. Transcribed Date/Time: 09/19/2018 11:50 AM
== END 2018-09-19 09:47 | disposition home or self-care (01) ==
LOC: MRI 09:46
PROVIDERS: ATTEND Radiology Radiation Oncology
DX: D32.0 Benign neoplasm of cerebral meninges (principal)
CPT/HCPCS: 70553; 82565

== ENCOUNTER 2019-02-08 08:32 | Outpatient (CLI) | payer MEDICARE, BC ==
--- NOTE | 2019-02-08 09:52 | CT ---
EXAM: CT face with contrast HISTORY: Lump along the right lower jaw 3 weeks COMPARISON: None TECHNIQUE: Multiple contiguous axial images were obtained and a CT of the face with contrast. Sagitta l and coronal reformats were performed. FINDINGS: There is focal increased amount of fat along the right mandible. This is at the area of palpable abn ormality. No solid mass is seen. No focal fluid collection is identified. The globes and retrobulbar soft tissues are unremarkable. No facial fractures are identified. The visualized paranasal sinuses are well aerated without evidence of opacification. The mastoid air cells are well aerated. Postsurgical changes are seen in the right frontal and temporal calvarium. Visualized intracranial st ructures are unremarkable. IMPRESSION: No abnormality represents slight increase accumulation of fat without suspicious mass.
--- NOTE | 2019-02-08 11:52 | MRI ---
MRI BRAIN WITH AND WITHOUT CONTRAST: CLINICAL INDICATION: History of soft tissue mass, headache, followup. FINDINGS: There is redemonstration of enhancing mass abutting the extraaxial space at the right middle cranial fossa and within the right museum informatics specialist space with underlying osseous disruption of the right sphenoid bone. Comparing to a prior MRI of 09/19/2018, overall volume of the mass is stable to slightly decrea sed in volume, approximately 3.7 cm craniocaudal compared to 4 cm in a similar location, x 3.6 cm in an obliquely oriented transverse dimension compared to 3.8 cm on prior exam. Encroachment upon the l ateral aspect of the right orbit and cavernous sinus is again seen. Prior extraaxial fluid collectio n abutting the anterior right temporal lobe has reduced in volume and there is thick, irregular pachy meningeal enhancement of this region now present. Right parafalcine meningioma is again seen near the vertex, grossly stable. No additional significan t interval change. IMPRESSION: 1. Redemonstration of a prominent-sized extraaxial mass abutting the right middle cranial fossa and extending into the right museum informatics specialist space with encroachment upon the right orbit and right cavernous sinus with associated, presumed reactive hyperostosis of the right sphenoid bone, although limited in assessment on the basis of this exam. The mass is slightly decreased in volume, some of which could be due to differences in slice selection/technique. 2. Interval decrease in volume of extraaxial fluid collection abutting the anterior right temporal l obe with residual thick irregular pachymeningeal enhancement of the dura of the right middle cranial fossa. This could relate to inflammatory or neoplastic component. 3. Redemonstration of high right parafalcine meningioma. POS: OFF
[2019-02-08] MEDS ORDERED: Gadobenate Dimeglumine 529 MG/1 ML (20ML VIAL) ONE (17:19)
== END 2019-02-08 08:33 | disposition home or self-care (01) ==
LOC: CT 08:32
PROVIDERS: ATTEND Radiology Radiation Oncology
DX: D32.0 Benign neoplasm of cerebral meninges (principal); R51 Headache; R22.0 Localized swelling, mass and lump, head
CPT/HCPCS: 70487; 70553; 82565; A9577

== ENCOUNTER 2019-03-03 11:47 | Observation (INO) | payer MEDICARE, BC ==
[2019-03-03 12:16] LABS: #Lymphocytes 0.8 thou/uL (1.20-3.40); #Monocytes 0.6 thou/uL (0.11-0.59); #Neutrophils 8.3 thou/uL (1.40-6.50); %Basophils 0.1 % (0.0-1.0); %Eosinophils 0.2 % (0.0-10.0); %Monocytes 5.9 % (0.0-10.0); %Neutrophils 85.8 % (42.0-75.0); Hemoglobin 16.2 g/dL (12.0-16.0); Mean Corpuscular HGB CONC 33.9 g/dL (32.0-36.0); Mean Corpuscular Hemoglobin 31.5 pg (27.0-31.0); Mean Corpuscular Volume 92.9 fL (78.0-98.0); Mean Platelet Volume 7.9 fL (7.4-10.4); Platelet Count 153 thou/uL (130-400); RBC Distribution Width 12.9 % (11.5-14.5); Red Blood Cell (RBC) Count 5.14 mill/uL (4.20-5.40); White Blood Cell (WBC) Count 9.7 thou/uL (4.8-10.8)
[2019-03-03 12:46] LABS: ALT (SGPT) 26 U/L (8-55); AST (SGOT) 29 U/L (5-34); Albumin 4.4 g/dL (3.4-4.8); Alkaline Phosphatase 59 U/L (40-110); Anion Gap 15 mmol/L (10-20); BUN (Urea Nitrogen) 18 mg/dL (9.8-20.1); Bilirubin, Total 1.2 mg/dL (0.2-1.2); Calc. Creatinine Clearance 0 mL/min (70-130); Carbon Dioxide 25 mmol/L (23-31); Chloride 107 mmol/L (98-107); Estimated GFR-MDRD 79; Globulin 2.6 g/dL (2.4-3.5); Glucose 158 mg/dL (83-110); Potassium 3.6 mmol/L (3.5-5.1); Sodium 143 mmol/L (136-145)
--- NOTE | 2019-03-03 13:41 | CT ---
CT head noncontrast HISTORY: Left-sided weakness. Headache. COMPARISON: 07/27/2018 and 02/08/2019. FINDINGS: Postoperative changes of the right frontotemporal calvarium again demonstrated with encepha lomalacia of the underlying right temporal lobe having evolved since the prior exams. No acute hemorrhage or infarct are evident. Vasogenic edema and associated encephalomalacia associated with th e 1.9 cm densely calcified right frontal parafalcine meningioma have increased since the prior study. Ventricles appear normal in size, shape and position. Osseous reaction of the right squamous b one is similar in appearance to the previous exam. IMPRESSION: Interval increase in vasogenic edema and encephalomalacia surrounding the right frontal p arafalcine meningioma. Interval evolution of the right temporal operative bed. No evidence of complication on this exam.
[2019-03-03] MEDS ORDERED: Dexamethasone 10 MG/ML VIAL ONE (15:41)
[2019-03-03] MEDS ORDERED: Acetaminophen 325 MG TAB PO PRN (16:34)
[2019-03-03] MEDS ORDERED: HYDROcodone/Acetaminophen 5/325 mg Tablet PO PRN (16:34)
[2019-03-03] MEDS ORDERED: Ondansetron ODT 4 MG TAB PO PRN (16:34)
[2019-03-03 16:39] LABS: Troponin I 0.684 ng/mL (< 0.028)
[2019-03-03] MEDS ORDERED: Meloxicam 15 MG TAB PO PRN (16:49)
[2019-03-03] MEDS: Sodium Chloride 0.9% 1,000 ML IV SCH (18:41)
[2019-03-03] MEDS: Dexamethasone 4 mg/ml Vial SLOW IVP SCH ×2 (18:41→23:57)
[2019-03-03 19:33] VITALS: BMI 32.8
[2019-03-03 19:46] LABS: Prothrombin Time 13.1 SEC (12.0-14.7)
[2019-03-03 20:08] LABS: Troponin I 1.024 ng/mL (< 0.028)
[2019-03-03] MEDS ORDERED: Labetalol HCl 100 MG/20 ML VIAL SLOW IVP PRN (20:15)
--- NOTE | 2019-03-03 20:19 | CON ---
DATE OF CONSULTATION: 03/03/2019 REASON FOR CONSULTATION: Positive troponins. HISTORY OF PRESENT ILLNESS: Ms. Coburn is a very pleasant 73-year-old white female, who comes to the hospital for leg weakness. She complains of leg weakness. She has had surgery on her brain in the past for tumor removal. CT of the brain was done and she was found to have cerebral edema around the site of surgery, surgery was many many months ago, but she was admitted for this. Because she had some tingling on the tip of her fingers, some troponins were drawn and they are in the positive range, so Cardiology has been consulted for this. Ms. Coburn denies any chest pain, tightness, pressure, or shortness of breath. Denies any syncope or presyncope. She has never had any heart problems in the past. PAST MEDICAL HISTORY: 1. Hyperlipidemia. 2. Hypertension. 3. Brain tumor status post resection. 4. Breast cancer, status post resection in 2010 and again in 2014. PAST SURGICAL HISTORY: 1. Mastectomy of the left breast. 2. Polypectomy in uterus. 3. Brain tumor removal. SOCIAL HISTORY: No alcohol, tobacco, or drugs. FAMILY HISTORY: No early coronary artery disease. OUTPATIENT MEDICATIONS: 1. Aromasin 25 mg a day. 2. Hydrochlorothiazide 25 mg a day. 3. Crestor 10 mg a day. 4. Lisinopril 40 mg a day. 5. Meloxicam p.r.n. ALLERGIES: CODEINE AND TRAMADOL. REVIEW OF SYSTEMS: A 12-point review of systems was done and was all negative unless stated in the history of present illness. PHYSICAL EXAMINATION: VITAL SIGNS: Temperature 97.2, respiratory rate 17, saturating 95% on room air, blood pressure 120/80, pulse of 81. GENERAL: Awake, alert, and oriented x3, in no distress. HEENT: Normocephalic and atraumatic. NECK: Supple. LUNGS: Clear. CARDIOVASCULAR: S1 and S2. No S3 or S4. There is a grade 2/6 systolic murmur at the right upper sternal border. ABDOMEN: Soft. Positive bowel sounds. EXTREMITIES: No edema. SKIN: Warm and dry. LABORATORY DATA: Laboratory work was reviewed. White count of 9.7, hemoglobin of 16.2, hematocrit of 47, and platelet count of 153. Chemistries were unremarkable except for glucose of 158. Troponin was 0.1, second one drawn was 0.68. CT of the brain was reviewed. She has increase in vasogenic edema and encephalomalacia surrounding the right frontal parafalcine meningioma with interval evolution of the right temporal operative bed. No evidence of complications. ASSESSMENT AND PLAN: 1. Type 2 myocardial infarction [employer] Organization demand type of ischemia. 2. Cerebral edema as above. PLAN: 1. We will continue to trend troponins. 2. No indication for full anticoagulation and this is most likely demand ischemia. 3. We will get an echocardiogram. Thank you for letting me to participate in the care of your patient. We will continue to follow. Job ID: [id number]
--- NOTE | 2019-03-03 20:53 | PDOC.HHP ---
Hospitalist HPI - History of Present Illness weakness, altered mental status History of Present Illness: This is a consultation note consulting provider: Dr Bean Reason for consultation: HTN, medical issues patient is a 73 year old female with PMH HTN, meningioma (resected 07/2018) who presents with intermittent L sided weakness and ataxia for the last 1-2 weeks, she has been falling down, having trouble getting into car, being forced to favor R side, L side is weak, dragging her feet. She presented here, had a head CT revealing vasogenic edema, neurosurgery admitted the patient and is giving decadron, patient troponin also noted to be elevated, cardology is following as well. They believe this may be radiation side effect (necrosis). NSG recommends patient blood pressure be kept around 150 systolic if able. she is feeling well otherwise, denies current chest pain or shortness of breath, wants to eat. no acute issues at this time. patient has PMH of HTN, HLD, meningioma, brest cancer with previous mastectomy and arthritis. she reports these chronic issues are all controlled with the exceptiong of the meningioma. Hospitalist ROS - Review of Systems Constitutional: denies: fever, chills Eyes: denies: pain, vision change ENT: denies: throat pain, throat swelling Respiratory: denies: cough, dry, shortness of breath Cardiovascular: denies: chest pain, palpitations Gastrointestinal: denies: nausea, vomiting, diarrhea Genitourinary: denies: dysuria, frequency Musculoskeletal: denies: neck pain, shoulder pain Neurological: reports: weakness (L sided weakness and numbness), numbness. denies: change in speech, confusion - Medication Medications: Active Medications Generic Name Dose Route Start Last Admin Trade Name Freq PRN Reason Stop Dose Admin Dexamethasone 4 mg 03/03/19 18:00 03/03/19 18:41 Decadron SLOW IVP 4 mg Q6HR BRENNA Administration Sodium Chloride 1,000 mls @ 75 mls/hr 03/03/19 16:45 03/03/19 18:41 Normal Saline 0.9% IV 1,000 mls .[id number] BRENNA Administration medications reviewed (both home and current), see EMR for complete list Hospitalist History - Past Medical History Other Medical History: HTN HLD meningioma breast cancer arthritis - Past Surgical History Other Surgical History: mastectomy brain tumor excision polypectomy of uterus (bening reported by patient) - Family History Other Family History: breast cancer in sister - Social History Smoking Status: Never smoker Alcohol: reports: None Drugs: reports: none - Exam General Appearance: NAD, awake alert Eye: PERRL, anicteric sclera ENT: normocephalic atraumatic, no oropharyngeal lesions, moist mucosa Neck: supple, symmetric, no JVD, no thyromegaly, no lymphadenopathy, no carotid bruit Heart: RRR, no murmur, no gallops, no rubs, normal peripheral pulses Respiratory: CTAB, no wheezes, no rales, no ronchi, normal chest expansion, no tachypnea, normal percussion Gastrointestinal: soft, non-tender, non-distended, normal bowel sounds, no palpable masses, no hepatomegaly, no splenomegaly, no bruit Extremities: no cyanosis, no clubbing, no edema Skin: normal turgor, no lesions, no rashes Neurological - other findings: L sided weakness Musculoskeletal: normal tone, normal strength, no muscle wasting Psychiatric: normal affect, normal behavior, A&O x 3 Hospitalist Results - Labs Result Diagrams: 03/03/19 12:06 03/03/19 12:06 Lab results: WBC 9.7 thou/uL (4.8-10.8) 03/03/19 12:06 Hgb 16.2 g/dL (12.0-16.0) H 03/03/19 12:06 Hct 47.8 % (36.0-47.0) H 03/03/19 12:06 MCV 92.9 fL (78.0-98.0) 03/03/19 12:06 Plt Count 153 thou/uL (130-400) 03/03/19 12:06 Neutrophils % 85.8 % (42.0-75.0) H 03/03/19 12:06 Sodium 143 mmol/L (136-145) 03/03/19 12:06 Potassium 3.6 mmol/L (3.5-5.1) 03/03/19 12:06 Chloride 107 mmol/L (98-107) 03/03/19 12:06 Carbon Dioxide 25 mmol/L (23-31) 03/03/19 12:06 BUN 18 mg/dL (9.8-20.1) 03/03/19 12:06 Creatinine 0.73 mg/dL (0.6-1.1) 03/03/19 12:06 Glucose 158 mg/dL (83-110) H 03/03/19 12:06 Calcium 10.0 mg/dL (7.8-10.44) 03/03/19 12:06 Total Bilirubin 1.2 mg/dL (0.2-1.2) 03/03/19 12:06 AST 29 U/L (5-34) 03/03/19 12:06 ALT 26 U/L (8-55) 03/03/19 12:06 Alkaline Phosphatase 59 U/L (40-110) 03/03/19 12:06 CK-MB (CK-2) 4.0 ng/mL (0-6.6) 03/03/19 12:06 Troponin I 1.024 ng/mL (< 0.028) H* 03/03/19 17:50 Serum Total Protein 7.0 g/dL (6.0-8.3) 03/03/19 12:06 Albumin 4.4 g/dL (3.4-4.8) 03/03/19 12:06 Hospitalist H&P A/P - Problem (1) HLD (hyperlipidemia) Code(s): E78.5 - HYPERLIPIDEMIA, UNSPECIFIED Status: Chronic Assessment and Plan: patients home crestor has been restarted (2) HTN (hypertension) Code(s): I10 - ESSENTIAL (PRIMARY) HYPERTENSION Status: Chronic Assessment and Plan: patients home HCTZ and lisinopril have been restarted, we will add PRN hydralazine for better regulation of blood pressure in-house (3) Vasogenic brain edema Code(s): G93.6 - CEREBRAL EDEMA Status: Acute Assessment and Plan: defer management to neurosurgery, patient is on decadron - we will add sliding scale insulin in case this induces a hyperglycemic state (4) Elevated troponin Code(s): R74.8 - ABNORMAL LEVELS OF OTHER SERUM ENZYMES Status: Acute Assessment and Plan: defer to cardiology, note reviewed, we are trending troponins and echo to be performed
[2019-03-03] MEDS ORDERED: CALCIUM CARB CIT PO SCH (21:00)
[2019-03-03] MEDS ORDERED: Loratadine/Pseudoephedrine 10/240 mg Tablet PO SCH (21:00)
[2019-03-03] MEDS ORDERED: Exemestane 25 MG TAB PO SCH (21:00)
[2019-03-03] MEDS ORDERED: MAGNESIUM OX PO SCH (21:00)
--- NOTE | 2019-03-04 02:52 | HP ---
This is Rupesh Hammer PA-C dictating a report for Sravan Bean MD. This is a 50-minute initial patient evaluation of which greater than 50% of the exam was spent in counseling and coordinating the patient's care. Remainder of the exam was spent in review of patient's medical records and review of appropriate imaging studies. CHIEF COMPLAINT: Intermittent left-sided weakness, status post right meningioma resection in July 2018. HISTORY OF PRESENT ILLNESS: Ms. Coburn is a pleasant 73-year-old female, who presents to the emergency room with her daughter for the above complaints. The patient apparently underwent a right-sided sphenoid wing meningioma resection in July 2018 that was consistent with a WHO grade 1 meningioma. The patient has had some intermittent left-sided weakness for the past several weeks, worse over the past day or two. She states she feels as though her left side is being tightened or compressed. She has been seen by Dr. Villalobos and received radiosurgery, which I believe was ended in December 2018. She does not report any blood thinners including aspirin. She does have a history of breast cancer. Review of the patient's head CT from today shows some vasogenic edema in the operative cavity in the right sphenoid wing that is rather suspicious for radiation necrosis. There does not appear to be any intracranial hemorrhage. There does appear to be a stable right frontal meningioma that is significantly calcified. There does not appear to be any mass effect in regard to the meningioma. PHYSICAL EXAMINATION: The patient is awake, alert, and appropriate. She has good strength in the right arm as well as the left, perhaps trace weakness in the left leg, she has good strength in the right. Good dyscrasias. She has mild weakness into the left upper extremity. She does not appear to be having a pronator drift. Pupils are equal, round, and reactive bilaterally. She has no fasciculations of the tongue. She is able to correctly identify a pen and define its purpose and she is able to correctly define an island. She has an indentation consistent with her craniotomy defect, but her incision is very well healed. She does have some tissue swelling above the right eye, but does not appear to impede her vision. She perhaps has some swelling into the right jaw as well. IMPRESSION/DIAGNOSES: 1. Status post right sphenoid wing meningioma resection in July [address] Farias. 2. Intermittent worsening left-sided weakness. PLAN: I have discussed the patient's case and imaging with Dr. Bean. At this time, we will admit the patient to the stroke unit with q.2 hours neuro checks for close neurologic monitoring. 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 I highly doubt that the patient require any type of repeat surgery at this time, but again we will keep a close neurologic eye on her. She did receive 10 mg of Decadron in the ER. We will continue with 4 mg q.6 at this time. The patient does also have some elevated troponin levels. We will consult Cardiology for this. I have also consulted [facility] to help with manage the patient's medical issues. We would like her systolic blood pressure to remain less than 150. Please call with any changes in patient's neurologic status. Otherwise, we will follow up with her in the morning to determine if any other testing needs to be completed. Also note the patient had an MRI on February 08, 2019. Again, does not appear to have any recurrence of tumor at this time. Again, we will follow up with the patient, but call with any neurologic changes. Job ID: [id number]
[2019-03-04] MEDS ORDERED: hydrALAZINE 20 MG/ML VIAL SLOW IVP PRN (04:48)
[2019-03-04] MEDS: Dexamethasone 4 mg/ml Vial SLOW IVP SCH ×2 (05:29→12:37)
[2019-03-04] MEDS ORDERED: HumaLOG 300 UNITS/3 ML VIAL SC PRN (05:52)
[2019-03-04] MEDS ORDERED: Dextrose 5% in Water 1,000 ML IV PRN (05:52)
[2019-03-04] MEDS ORDERED: Dextrose 50% Abboject 50 ML SYRINGE SLOW IVP PRN (05:52)
[2019-03-04 06:11] LABS: #Monocytes 0.1 thou/uL (0.11-0.59); #Neutrophils 9.7 thou/uL (1.40-6.50); %Basophils 0.1 % (0.0-1.0); %Eosinophils 0.1 % (0.0-10.0); %Lymphocytes 9.3 % (21.0-51.0); %Monocytes 1.2 % (0.0-10.0); %Neutrophils 89.3 % (42.0-75.0); Hemoglobin 16.8 g/dL (12.0-16.0); Mean Corpuscular HGB CONC 34.2 g/dL (32.0-36.0); Mean Corpuscular Hemoglobin 32.1 pg (27.0-31.0); Mean Corpuscular Volume 93.9 fL (78.0-98.0); Mean Platelet Volume 8.6 fL (7.4-10.4); Platelet Count 123 thou/uL (130-400); RBC Distribution Width 12.9 % (11.5-14.5); Red Blood Cell (RBC) Count 5.24 mill/uL (4.20-5.40); White Blood Cell (WBC) Count 10.9 thou/uL (4.8-10.8)
[2019-03-04 06:24] LABS: Calcium 9.5 mg/dL (7.8-10.44); Chloride 105 mmol/L (98-107); Potassium 3.9 mmol/L (3.5-5.1); Sodium 140 mmol/L (136-145)
[2019-03-04 06:27] LABS: Critical Call Chem Troponin I RESULT DECREASING
[2019-03-04 06:36] LABS: BUN (Urea Nitrogen) 17 mg/dL (9.8-20.1); Calc. Creatinine Clearance 74 mL/min (70-130); Carbon Dioxide 23 mmol/L (23-31); Estimated GFR-MDRD 85; Glucose 156 mg/dL (83-110)
[2019-03-04 07:09] LABS: Anion Gap 16 mmol/L (10-20)
[2019-03-04] MEDS ORDERED: Calcium Carbonate + Vit D 1 TAB PO SCH (09:00)
[2019-03-04] MEDS ORDERED: Lisinopril 20 MG TAB PO SCH (09:00)
[2019-03-04] MEDS ORDERED: Multivit, Therapeutic 1 TAB PO SCH (09:00)
[2019-03-04] MEDS ORDERED: Ascorbic Acid 500 mg Chewable Tablet PO SCH (09:00)
[2019-03-04] MEDS ORDERED: Cyanocobalamin (Vitamin B-12) 1,000 MCG TAB PO SCH (09:00)
[2019-03-04] MEDS ORDERED: Vit A,C & E/Lutein/Minerals Tablet PO SCH (09:00)
[2019-03-04] MEDS ORDERED: pyridOXINE 50 MG (B6) TAB PO SCH (09:00)
[2019-03-04] MEDS ORDERED: Hydrochlorothiazide 25 MG TAB PO SCH (09:00)
[2019-03-04] MEDS: Sodium Chloride 0.9% 1,000 ML IV SCH (09:25)
--- NOTE | 2019-03-04 11:59 | PDOC.HOSPP ---
- Subjective Encounter Date: 03/04/19 Encounter Time: 09:00 Subjective: no sob or chest pain or palp feels good left sided weakness/parasthesias have completely resolved per patient - Objective Vital Signs & Weight: Vital Signs (12 hours) Temp Pulse Resp BP BP Pulse Ox 03/04/19 11:51 98.4 F 95 16 127/67 94 L 03/04/19 08:13 129/68 03/04/19 07:52 98.1 F 83 20 129/68 94 L 03/04/19 03:59 97.6 F 86 16 123/71 95 Weight Weight 136 lb 0.403 oz I&O: 03/03/19 03/04/19 03/05/19 06:59 06:59 06:59 Intake Total 1148 480 Balance 1148 480 Result Diagrams: 03/04/19 05:43 03/04/19 05:43 Additional Labs: Accuchecks 03/04/19 06:19 POC Glucose 149 H Hospitalist ROS - Medication Medications: Active Medications Generic Name Dose Route Start Last Admin Trade Name Ashley PRN Reason Stop Dose Admin Ascorbic Acid 500 mg 03/04/19 09:00 03/04/19 08:13 Vitamin C PO 500 mg DAILY BRENNA Administration Calcium/Vitamin D 1 tab 03/04/19 09:00 03/04/19 08:13 Caltrate 600 + Vit D PO 1 tab DAILY BRENNA Administration Cyanocobalamin 1,000 mcg 03/04/19 09:00 03/04/19 08:14 Vitamin B-12 PO 1,000 mcg DAILY BRENNA Administration Dexamethasone 4 mg 03/03/19 18:00 03/04/19 05:29 Decadron SLOW IVP 4 mg Q6HR BRENNA Administration Exemestane 25 mg 03/03/19 21:00 03/03/19 21:04 Aromasin PO 25 mg HS BRENNA Administration Hydrochlorothiazide 25 mg 03/04/19 09:00 03/04/19 08:13 Hydrochlorothiazide PO 25 mg DAILY BRENNA Administration Sodium Chloride 1,000 mls @ 75 mls/hr 03/03/19 16:45 03/04/19 09:25 Normal Saline 0.9% IV 1,000 mls .[id number] BRENNA Administration Lisinopril 40 mg 03/04/19 09:00 03/04/19 08:13 Zestril PO 40 mg DAILY BRENNA Administration Loratadine/Pseudoephedrine Sulfate 1 tab 03/03/19 21:00 03/03/19 21:04 Claritin-D 24 Hour PO 1 tab HS BRENNA Administration Multivitamins 1 tab 03/04/19 09:00 03/04/19 08:13 Theragran PO 1 tab DAILY BRENNA Administration Multivitamins/Minerals 1 tab 03/04/19 09:00 03/04/19 08:12 Ocuvite With Lutein PO 1 tab DAILY BRENNA Administration Pantoprazole Sodium 40 mg 03/04/19 09:00 03/04/19 08:14 Protonix PO 40 mg DAILY BRENNA Administration Pyridoxine HCl 50 mg 03/04/19 09:00 03/04/19 08:12 Vitamin B 6 PO 50 mg DAILY BRENNA Administration - Exam General Appearance: NAD, awake alert Eye: PERRL, anicteric sclera ENT: no oropharyngeal lesions, moist mucosa Neck: supple, no JVD Heart: RRR, no murmur Respiratory: no wheezes, no rales Gastrointestinal: soft, non-tender, non-distended, normal bowel sounds Extremities: no cyanosis, no edema Neurological: cranial nerve grossly intact, no focal deficits Psychiatric: normal affect, A&O x 3 Hosp A/P (1) h/o meningioma resection Status: Chronic (2) H/O malignant neoplasm of breast Code(s): Z85.3 - PERSONAL HISTORY OF MALIGNANT NEOPLASM OF BREAST Status: Chronic (3) HLD (hyperlipidemia) Code(s): E78.5 - HYPERLIPIDEMIA, UNSPECIFIED Status: Chronic Qualifiers: Hyperlipidemia type: unspecified Qualified Code(s): E78.5 - Hyperlipidemia , unspecified (4) HTN (hypertension) Code(s): I10 - ESSENTIAL (PRIMARY) HYPERTENSION Status: Chronic Qualifiers: Hypertension type: essential hypertension Qualified Code(s): I10 - Essential (primary) hypertension - Plan came in with left sided weakness due to vasogenic edema from prior radiation therapy to meningioma resection area last dose of rad was in december, resection was in is on decadron iv q6h, has responded well continue exemestane, hctz, lisinopril dc iv fluids to amb as tolerated dc plan per cardio adv, echo results pending
--- NOTE | 2019-03-04 13:10 | PDOC.CPN ---
- Subjective Date: 03/04/19 Time: 13:08 Interval history: She isd oing well. She denies any chest pain, tightness, pressure, SOB. her numbness and tingling is on her right arm only. - Review of Systems General: denies: fever/chills, weight/appetite/sleep changes, night sweats, fatigue Respiratory: denies: cough, congestion, shortness of breath, exercise intolerance Cardiovascular: denies: chest pain, palpitation, edema, paroxysmal nocturnal dyspnea, orthopnea Gastrointestinal: denies: nausea, vomiting, diarrhea, constipation, abd pain, GI bleeding Musculoskeletal: denies: pain, tenderness, stiffness, swelling, arthritis/ arthralgias Neurological: reports: numbness. denies: syncope, seizure, weakness - Objective Allergies/Adverse Reactions: Allergies Allergy/AdvReac Type Severity Reaction Status Date / Time codeine Allergy Verified 03/03/19 20:35 tramadol Allergy Nausea Verified 03/03/19 20:35 Visit Medications: Current Medications Acetaminophen (Tylenol) 650 mg PO Q4H PRN PRN Reason: Headache/Fever/Mild Pain (1-3) Hydrocodone Bitart/Acetaminophen ([place] 5/325) 1 tab PO Q4H PRN PRN Reason: Moderate Pain (4-6) Ascorbic Acid (Vitamin C) 500 mg PO DAILY [facility] Last Admin: 03/04/19 08:13 Dose: 500 mg Calcium/Vitamin D (Caltrate 600 + Vit D) 1 tab PO DAILY [facility] Last Admin: 03/04/19 08:13 Dose: 1 tab Cyanocobalamin (Vitamin B-12) 1,000 mcg PO DAILY [facility] Last Admin: 03/04/19 08:14 Dose: 1,000 mcg Dexamethasone (Decadron) 4 mg SLOW IVP Q6HR [facility] Last Admin: 03/04/19 12:37 Dose: 4 mg Dextrose/Water (Dextrose 50%) 25 gm SLOW IVP PRN PRN PRN Reason: Hypoglycemia Exemestane (Aromasin) 25 mg PO HS [facility] Last Admin: 03/03/19 21:04 Dose: 25 mg Glucagon (Glucagon) 1 mg IM PRN PRN PRN Reason: Hypoglycemia Hydralazine HCl (Apresoline) 10 mg SLOW IVP Q4H PRN PRN Reason: SBP GREATER THAN 160 Hydrochlorothiazide (Hydrochlorothiazide) 25 mg PO DAILY [facility] Last Admin: 03/04/19 08:13 Dose: 25 mg Sodium Chloride (Normal Saline 0.9%) 1,000 mls @ 75 mls/hr IV .[id number] [facility] Last Admin: 03/04/19 09:25 Dose: 1,000 mls Dextrose/Water (D5w) 1,000 mls @ 0 mls/hr IV .Q0M PRN PRN Reason: Hypoglycemia Insulin Human Lispro (Humalog) 0 units SC .MILD SLIDING SCALE PRN PRN Reason: Mild Correctional Scale Last Admin: 03/04/19 12:37 Dose: 2 unit Labetalol HCl (Normodyne) 10 mg SLOW IVP Q10MIN PRN PRN Reason: Sbp Greater Than 150 Lisinopril (Zestril) 40 mg PO DAILY [facility] Last Admin: 03/04/19 08:13 Dose: 40 mg Loratadine/Pseudoephedrine Sulfate (Claritin-D 24 Hour) 1 tab PO HS [facility] Last Admin: 03/03/19 21:04 Dose: 1 tab Multivitamins (Theragran) 1 tab PO DAILY [facility] Last Admin: 03/04/19 08:13 Dose: 1 tab Multivitamins/Minerals (Ocuvite With Lutein) 1 tab PO DAILY [facility] Last Admin: 03/04/19 08:12 Dose: 1 tab Ondansetron HCl (Zofran Odt) 4 mg PO Q6H PRN PRN Reason: Nausea/Vomiting Pantoprazole Sodium (Protonix) 40 mg PO DAILY [facility] Last Admin: 03/04/19 08:14 Dose: 40 mg Pyridoxine HCl (Vitamin B 6) 50 mg PO DAILY [facility] Last Admin: 03/04/19 08:12 Dose: 50 mg Sodium Chloride (Flush - Normal Saline) 10 ml IVF PRN PRN PRN Reason: Saline Flush Vital Signs & Weight: Vital Signs Temp Pulse Resp BP BP Pulse Ox 03/04/19 11:51 98.4 F 95 16 127/67 94 L 03/04/19 08:13 129/68 03/04/19 07:52 98.1 F 83 20 129/68 94 L 03/04/19 03:59 97.6 F 86 16 123/71 95 Weight 136 lb 0.403 oz - Physical Exam General: alert & oriented x3 HEENT: mucus membranes moist, normocephaly Neck: supple neck Cardiac: regular rate and rhythm, no murmur Lungs: clear to auscultation, no wheeze, rales, rhonchi Neuro: weakness Abdomen: active bowel sounds, soft, non-tender Skin: clear Musculoskeletal: normal range of motion, no pain - Labs Result Diagrams: 03/04/19 05:43 03/04/19 05:43 Troponin/CKMB CK-MB (CK-2) 14.0 ng/mL (0-6.6) H* 03/04/19 05:43 Troponin I 0.558 ng/mL (< 0.028) H* 03/04/19 05:43 - Telemetry Sinus rhythms and dysrhythmias: sinus rhythm - Assessment/Plan Assessment/Plan: 1. 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 2. S/P Right sphenoid wing meningioma resection 3. Intermittent left sided weakness. 4. Edema around site of surgery. 5. Asymmetric septal hypertrophy with mildly elevated gradients. PLAN: - Likely demand ischemia. - October d/c home on Aspirin 81 mg daily. - Follow up in the office in 1 month for further risk stratification with stress test as an outpatient.
[2019-03-04 15:35] VITALS: BP 127/66; TEMP 99.3
== END 2019-03-04 16:12 | disposition home or self-care (01) ==
LOC: ERS 11:47 → 2SE 15:07
PROVIDERS: ADMIT Surgery; ATTEND Surgery
DX: G93.6 Cerebral edema (principal); I21.A1 Myocardial infarction type 2; E78.5 Hyperlipidemia, unspecified; I10 Essential (primary) hypertension; M19.90 Unspecified osteoarthritis, unspecified site; Z85.3 Personal history of malignant neoplasm of breast; Z90.10 Acquired absence of unspecified breast and nipple; Z98.890 Other specified postprocedural states
CPT/HCPCS: 70450; 80048; 80053; 82553 ×2; 82962; 84484 ×3; 85025 ×2; 85610; 85730; 93005; 93306; 94760; 96361 ×3; 96374; 96376 ×2; 99285; G0378 ×3; 36415; 36416; J1100

== ENCOUNTER 2019-03-21 15:33 | Outpatient (CLI) | payer MEDICARE, BC ==
--- NOTE | 2019-03-21 17:09 | MRI ---
MRI BRAIN WITH AND WITHOUT CONTRAST: DATE: 03/21/2019 HISTORY: 73-year-old female. Follow-up meningioma. COMPARISON: 02/08/2019 MRI TECHNIQUE: Multiplanar, multisequence MRI of the brain performed pre- and post-IV injection of gadolinium based contrast agent. FINDINGS: Again noted are the right frontal temporal craniotomy changes, including moderately large osseous def ect involving the squamosal portion of the right temporal bone. There is severe hyperostosis and spiculation involving the lesser wing and especially greater wing, of the right sphenoid bone at the intracranial side of this surgical site, there is heterogeneous enhancement in the right middle cranial fossa, plus adjacent patchy region of T2 hyperintense intra-axial signal in the anterior righ t temporal lobe, which could represent vasogenic edema, gliosis, or combination of both. No interval change. Neoplastic enhancing tumor component extending through the spiculated hyperostotic lateral wall of th e right orbit into the extraconal portion of the right orbit medially displaces the right rectus abdominis muscle. This intraorbital tumor component measures approximately 1 x 2 x 2.5 cm. No interva l change. There is a enhancing approximately 3 x 3.5 x 2.5 cm tumor mass component in the right middle cranial fossa, deep to the right zygomatic arch and encroaching upon the right parietal antral fat pad. No interval change. Again noted is the high right parafalcine well-circumscribed approximately 1.5 x 2 x 1.8 cm heterogen eously enhancing extra-axial mass consistent with meningioma. It now has a greater degree of surrounding vasogenic edema than previously. The vasogenic edema region currently measures approximat christiane 4.5 x 2 x 4 cm, and now depresses and distorts the body of the right lateral ventricle. The size of this right parafalcine meningioma has not changed. No subfalcine herniation. No obstructive hydrocephalus. IMPRESSION: 1) the high right parafalcine 1.5 x 2 x 1.8 cm meningioma has not changed in size, but there is now a greater degree of surrounding thin rim of enhancement, and greater degree of vasogenic edema now causing mild-moderate mass effect upon the right lateral ventricle. This is consistent with parasitiz ation of pial blood vessels. 2) evidence for aggressive meningioma of right middle cranial fossa with tumor components invading th e right middle cranial fossa and right orbit. Hyperostosis including spiculation of right sphenoid bone. Status post right pterional. The largest tumor component is in the right middle cranial, follow ed by the extraconal, intraorbital tumor component. There are postsurgical changes in the right middle cranial fossa, and either gliosis or vasogenic edema or combination of both. It is uncertain w hether or not there is residual tumor component in the middle cranial fossa. No interval change in this area.
== END 2019-03-21 15:34 | disposition home or self-care (01) ==
LOC: MRI 15:33
PROVIDERS: ATTEND Neurological Surgery
DX: D33.2 Benign neoplasm of brain, unspecified (principal)
CPT/HCPCS: 70553

== ENCOUNTER 2019-04-15 09:57 | Emergency (ER) | payer MEDICARE, BC ==
[2019-04-15 11:22] LABS: ALT (SGPT) 52 U/L (8-55); AST (SGOT) 24 U/L (5-34); Albumin 4.2 g/dL (3.4-4.8); Alkaline Phosphatase 57 U/L (40-110); Anion Gap 16 mmol/L (10-20); BUN (Urea Nitrogen) 14 mg/dL (9.8-20.1); Bilirubin, Total 1.3 mg/dL (0.2-1.2); Calc. Creatinine Clearance 0 mL/min (70-130); Carbon Dioxide 26 mmol/L (23-31); Chloride 101 mmol/L (98-107); Estimated GFR-MDRD Greater than 90; Globulin 2.9 g/dL (2.4-3.5); Glucose 100 mg/dL (83-110); Potassium 4.2 mmol/L (3.5-5.1); Protein, Total 7.1 g/dL (6.0-8.3); Sodium 139 mmol/L (136-145)
[2019-04-15 11:43] LABS: #Lymphocytes 0.7 thou/uL (1.20-3.40); #Monocytes 0.7 thou/uL (0.11-0.59); #Neutrophils 7.4 thou/uL (1.40-6.50); %Basophils 0.2 % (0.0-1.0); %Eosinophils 0.1 % (0.0-10.0); %Lymphocytes 8.2 % (21.0-51.0); %Monocytes 7.7 % (0.0-10.0); %Neutrophils 83.7 % (42.0-75.0); Hemoglobin 16.3 g/dL (12.0-16.0); MDiff Complete? YES; Mean Corpuscular HGB CONC 33.3 g/dL (32.0-36.0); Mean Corpuscular Hemoglobin 31.8 pg (27.0-31.0); Mean Corpuscular Volume 95.6 fL (78.0-98.0); Mean Platelet Volume 7.6 fL (7.4-10.4); Platelet Count 97 thou/uL (130-400); Platelet Morphology Comment Appears Decreased; RBC Distribution Width 14.3 % (11.5-14.5); Red Blood Cell (RBC) Count 5.13 mill/uL (4.20-5.40); White Blood Cell (WBC) Count 8.9 thou/uL (4.8-10.8)
--- NOTE | 2019-04-15 12:15 | CT ---
EXAM: Abdomen and pelvic CT scan with contrast: HISTORY: Lower abdominal pain, left lower quadrant pain, suprapubic pain COMPARISON: None FINDINGS: Mild nonspecific linear stranding in the lung bases. Liver: Unremarkable. Gallbladder:Unremarkable. Pancreas:Unremarkable Spleen:Unremarkable. Adrenal glands:Unremarkable. Kidneys:No renal calculus or acute obstruction. No solid or cystic renal mass. Colonic diverticulosis changes are noted within the colon particularly the sigmoid colon. There is as sociated bowel wall thickening of the rectal sigmoid portion of the colon with pericolonic fat stranding and evidence for acute diverticulitis without evidence for free intraperitoneal air or drai nable abscess. Small fat-containing umbilical hernia. No CT evidence for acute appendicitis. The urinary bladder is unremarkable. Reproductive system:Multiple calcified uterine fibroids as well as a noncalcified mass of the uterus probably a degenerating fibroid. No abscess, adenopathy, or abnormal fluid collection within the abdomen or pelvis. IMPRESSION: Evidence for acute sigmoid diverticulitis without free air or drainable abscess. Evidence for multipl e intrauterine fibroids 2 of which appear to be calcified. Other findings as above.
[2019-04-15] MEDS ORDERED: Amoxicillin/Potassium Clav 875 MG TAB ONE (12:43)
[2019-04-15 13:32] LABS: Bacteria/HPF None Seen HPF (None Seen); Bilirubin Negative (Negative); Blood, Urine Negative (Negative); Clarity Clear (Clear); Glucose, Urine (Dipstick) Normal (Negative); Leukocyte 75 Leu/uL (Negative); Nitrite Negative (Negative); Protein, Urine (Dipstick) Negative (Neg-Trace); Squamous Epithelial 0-3 HPF (0-3); Urobilinogen Normal mg/dL (Less than 2)
[2019-04-15 13:33] LABS: RBC/HPF 0-3 HPF (0-3)
[2019-04-15] MEDS ORDERED: Iopamidol-370 76% 500 ML 1 ML ONE (16:50)
== END 2019-04-15 15:06 | disposition short-term general hospital (02) ==
LOC: ERS 09:57
DX: K57.32 Diverticulitis of large intestine without perforation or abscess without bleeding (principal); E78.5 Hyperlipidemia, unspecified; I10 Essential (primary) hypertension; Z79.899 Other long term (current) drug therapy
CPT/HCPCS: 74177; 80053; 81003; 81015; 84484; 85025; 96360; 96361; Q9967

== ENCOUNTER 2019-04-16 12:31 | Emergency (ER) | payer MEDICARE, BC ==
[2019-04-16 13:04] LABS: #Lymphocytes 0.7 thou/uL (1.20-3.40); #Monocytes 0.5 thou/uL (0.11-0.59); #Neutrophils 5.5 thou/uL (1.40-6.50); %Basophils 0.1 % (0.0-1.0); %Eosinophils 0.2 % (0.0-10.0); %Lymphocytes 10.4 % (21.0-51.0); %Monocytes 7.6 % (0.0-10.0); %Neutrophils 81.7 % (42.0-75.0); Hemoglobin 15.7 g/dL (12.0-16.0); Mean Corpuscular HGB CONC 33.6 g/dL (32.0-36.0); Mean Corpuscular Hemoglobin 32.1 pg (27.0-31.0); Mean Corpuscular Volume 95.6 fL (78.0-98.0); Mean Platelet Volume 7.6 fL (7.4-10.4); Platelet Count 101 thou/uL (130-400); RBC Distribution Width 13.9 % (11.5-14.5); White Blood Cell (WBC) Count 6.7 thou/uL (4.8-10.8)
[2019-04-16 13:19] LABS: ALT (SGPT) 37 U/L (8-55); AST (SGOT) 22 U/L (5-34); Albumin 3.8 g/dL (3.4-4.8); Alkaline Phosphatase 51 U/L (40-110); Anion Gap 14 mmol/L (10-20); BUN (Urea Nitrogen) 15 mg/dL (9.8-20.1); Bilirubin, Total 1.2 mg/dL (0.2-1.2); Calc. Creatinine Clearance 0 mL/min (70-130); Calcium 9.7 mg/dL (7.8-10.44); Carbon Dioxide 24 mmol/L (23-31); Chloride 100 mmol/L (98-107); Estimated GFR-MDRD Greater than 90; Globulin 2.9 g/dL (2.4-3.5); Glucose 124 mg/dL (83-110); Potassium 4.1 mmol/L (3.5-5.1); Protein, Total 6.7 g/dL (6.0-8.3); Sodium 134 mmol/L (136-145)
[2019-04-16 13:20] LABS: INR-International Normal Ratio 1.1; PTT 27.7 SEC (22.9-36.1); Prothrombin Time 13.8 SEC (12.0-14.7)
--- NOTE | 2019-04-16 13:33 | CT ---
HEAD CT WITHOUT CONTRAST: HISTORY: Level II stroke alert. Left-sided weakness, onset at 5:00 PM yesterday. COMPARISON: None. CORRELATION: 03/21/2019 brain MRI. FINDINGS: Hemorrhage: No intraparenchymal hemorrhage or extra-axial hematoma. Brain parenchyma: Stable edema involving the right frontal lobe secondary to calcified meningioma. St able postoperative changes in the right frontal temporal region. With regards to the remainder of the right cerebrum and left cerebrum, cortical robb-white matter differentiation . Ventricular system: Table configuration the ventricular system. Calvarium: Stable postsurgical changes. Stable bony changes involving the right sphenoid. Sinuses and mastoid air cells: Adequate aeration. IMPRESSION: No acute intracranial process. Results of the study discussed with Dr. Brewer 04/16/2019 at 1:31 PM Code CR Transcribed Date/Time: 04/16/2019 1:57 PM
--- NOTE | 2019-04-16 13:46 | RAD ---
SINGLE VIEW CHEST: Date: 04/16/19 COMPARISON: 03/28/18. HISTORY: Left-sided weakness. History of brain mass. FINDINGS: Single view of the chest shows a normal sized cardiomediastinal silhouette. There is no evidence of c onsolidation, mass, or pleural effusion. Degenerative changes are seen in the spine. IMPRESSION: No evidence of acute cardiopulmonary disease. POS: TPC
[2019-04-16] MEDS ORDERED: Acetaminophen 500 MG TAB ONE (13:55)
[2019-04-16 14:39] LABS: Bacteria/HPF None Seen HPF (None Seen); Bilirubin Negative (Negative); Blood, Urine 1+ (Negative); Clarity Clear (Clear); Glucose, Urine (Dipstick) Normal (Negative); Leukocyte 250 Leu/uL (Negative); Nitrite Negative (Negative); Protein, Urine (Dipstick) 30 mg/dL (Neg-Trace); Squamous Epithelial 0-3 HPF (0-3); Urobilinogen Normal mg/dL (Less than 2)
[2019-04-16] MEDS ORDERED: cefTRIAXone\\ROCEPHIN 1 GM VIAL ONE (14:53)
== END 2019-04-16 21:55 ==
LOC: ERS 12:31
DX: N39.0 Urinary tract infection, site not specified (principal); I10 Essential (primary) hypertension; E78.5 Hyperlipidemia, unspecified
CPT/HCPCS: 36416; 70450; 71045; 80053; 81003; 81015; 83605; 84484; 85025; 85610; 85730; 87040; 87149; 87804; 93005; 96361; 96365; J0696

== ENCOUNTER 2019-06-27 16:17 | Observation (INO) | payer MEDICARE, BC ==
--- NOTE | 2019-06-27 19:12 | RAD ---
Exam:Left hip 2 views HISTORY: Pain. Fall. COMPARISON: None FINDINGS: Incidental calcified uterine myomas are suspected. Visualized bony pelvis is intact. Contou r of the femoral head is maintained. Preserved joint space. No fracture. IMPRESSION: Unremarkable left hip 2 views. No fracture.
--- NOTE | 2019-06-27 19:13 | RAD ---
Exam: One view pelvis HISTORY: Pain. Trauma. Fall. FINDINGS: Calcified densities likely representing uterine leiomyomas Sacral alar preserved Symmetric sacroiliac joints Intact bony pelvis Bilateral obturator rings are intact. Contour of both femoral heads are maintained. No fracture IMPRESSION: No bony pelvic fracture.
--- NOTE | 2019-06-27 22:19 | CT ---
Exam: Head CT without contrast HISTORY: Left-sided tremor. COMPARISON: 04/16/2019 Correlation: Brain MRI 03/21/2019 FINDINGS: Hemorrhage: No intraparenchymal hemorrhage or extra-axial hematoma. Brain parenchyma: Redemonstration of a calcified anterior right parafalcine meningioma measuring 1.5 x 1.7 cm. Associated vasogenic edema in the right frontal lobe. Associated sulcal effacement. No significant midline shift. Basilar cisterns are patent. Stable encephalomalacia and gliosis in the ri ght temporal lobe. Abnormal attenuation is noted in the right public health educator space, similar to the previous MRI. Ventricular system: Ventricles and sulci are patent and symmetric. Calvarium: Postsurgical changes in the right calvarium. Irregularity involving the right sphenoid bon e secondary to an aggressive meningioma Sinuses and mastoid air cells: Adequate aeration. IMPRESSION: 1. Redemonstration of vasogenic edema in the right frontal lobe secondary to a calcified anterior rig ht parafalcine meningioma. 2. Stable postoperative changes and bony changes in the right sphenoid bone and right calvarium. 3. Abnormal hypoattenuation in the right public health educator space, corresponding to abnormal enhancement note d on MRI from March 2019. Transcribed Date/Time: 06/27/2019 10:30 PM
[2019-06-27 22:31] LABS: #Basophils 0.1 thou/uL (0.0-0.2); #Lymphocytes 1.4 thou/uL (1.20-3.40); #Monocytes 0.9 thou/uL (0.11-0.59); #Neutrophils 7.1 thou/uL (1.40-6.50); %Basophils 0.7 % (0.0-1.0); %Eosinophils 0.1 % (0.0-10.0); %Lymphocytes 14.5 % (21.0-51.0); %Monocytes 9.9 % (0.0-10.0); %Neutrophils 74.9 % (42.0-75.0); Hemoglobin 16.5 g/dL (12.0-16.0); Mean Corpuscular HGB CONC 33.6 g/dL (32.0-36.0); Mean Corpuscular Hemoglobin 31.9 pg (27.0-31.0); Mean Platelet Volume 7.8 fL (7.4-10.4); Platelet Count 161 thou/uL (130-400); RBC Distribution Width 13.6 % (11.5-14.5); Red Blood Cell (RBC) Count 5.19 mill/uL (4.20-5.40); White Blood Cell (WBC) Count 9.5 thou/uL (4.8-10.8)
[2019-06-27 22:52] LABS: ALT (SGPT) 32 U/L (8-55); AST (SGOT) 41 U/L (5-34); Albumin 4.4 g/dL (3.4-4.8); Alkaline Phosphatase 65 U/L (40-110); Anion Gap 15 mmol/L (10-20); BUN (Urea Nitrogen) 16 mg/dL (9.8-20.1); Bilirubin, Total 1.4 mg/dL (0.2-1.2); Calc. Creatinine Clearance 0 mL/min (70-130); Calcium 10.8 mg/dL (7.8-10.44); Carbon Dioxide 32 mmol/L (23-31); Chloride 100 mmol/L (98-107); Estimated GFR-MDRD Greater than 90; Globulin 3.1 g/dL (2.4-3.5); Glucose 103 mg/dL (83-110); Potassium 3.9 mmol/L (3.5-5.1); Protein, Total 7.5 g/dL (6.0-8.3); Sodium 143 mmol/L (136-145)
[2019-06-27] MEDS ORDERED: Dexamethasone 10 MG/ML VIAL ONE (23:09)
[2019-06-27] MEDS ORDERED: levETIRAcetam 500 mg/5 ml Oral Solution PO SCH (23:30)
[2019-06-28 02:13] VITALS: BMI 34.0
[2019-06-28] MEDS ORDERED: Ondansetron PF 4 MG/2 ML Vial IVP PRN (10:52)
[2019-06-28] MEDS ORDERED: Acetaminophen 325 MG TAB PO PRN (10:52)
--- NOTE | 2019-06-28 11:02 | PDOC.HHP ---
Hospitalist HPI - History of Present Illness left sided weakness, fall History of Present Illness: Ms. Coburn is a 73 y/o lady with PMH of mengioma resection in Jul 2018, HTN, HLD, who presents with worsening left sided weakness and fall. She states yesterday during lunch time she was trying to cut her sandwich when she noted worsening weakness on her left side. She was unable to use the knife to cut her sandwich. She attempted to stand and walk after that but felt her left leg lock and she fell to left side. She did not lose consciousness or did not have any pain after the fall. She states that she has chronic left sided weakness. She had received a course of home health physical therapy in the past and states that it helped. Overall she feels that the weakness is worse than it normally is. She has history of meningioma resection in Jul 2018 and has history of a calcified meningioma and has followup with Dr. Valladares her Neurosurgeon and sees Dr. Villalobos her radiation oncologist. Her last dose of radiation was in December 2018. Hospitalist ROS - Review of Systems Constitutional: denies: fever, chills, sweats, weakness, malaise, other Eyes: denies: pain, vision change, conjunctivae inflammation, eyelid inflammation, redness, other ENT: denies: ear pain, ear discharge, nose pain, nose discharge, nose congestion , mouth pain, mouth swelling, throat pain, throat swelling, other Respiratory: denies: cough, dry, shortness of breath, hemoptysis, SOB with excertion, pleuritic pain, sputum, wheezing, other Cardiovascular: denies: chest pain, palpitations, orthopnea, paroxysmal noc. dyspnea, edema, light headedness, other Gastrointestinal: denies: nausea, vomiting, abdominal pain, diarrhea, constipation, melena, hematochezia, other Genitourinary: denies: dysuria, frequency, incontinence, hematuria, retention, other Musculoskeletal: denies: neck pain, shoulder pain, arm pain, back pain, hand pain, leg pain, foot pain, other Skin: denies: rash, lesions, gibran, bruising, other Neurological: reports: weakness. denies: numbness, incoordination, change in speech, confusion, seizures, other - Medication Medications: Medication Instructions Recorded Confirmed Type C,E,Zinc,Copper 24/Om3/Lut/Remedios 1 cap PO DAILY 11/18/14 06/28/19 History [Ocuvite Adult 50 Plus Softgel] Cyanocobalamin (Vitamin B-12) 1,000 mcg PO DAILY 11/18/14 06/28/19 History [Vitamin B-12] Exemestane 25 mg PO HS 11/18/14 06/28/19 History Hydrochlorothiazide 25 mg PO DAILY 11/18/14 06/28/19 History Multivitamin [Multivitamins] 1 cap PO DAILY 11/18/14 06/28/19 History pyridOXINE [Vitamin B 6] 100 mg PO DAILY 11/18/14 06/28/19 History Lisinopril 40 mg PO DAILY 11/19/14 06/28/19 History Acetaminophen [8Hr Muscle 650 mg PO HS 07/25/18 06/28/19 History Aches-Pain] Ascorbate Calcium [Vitamin C] 500 mg PO DAILY 07/25/18 06/28/19 History Calcium Carb, Cit/Magnesium Ox 1 tablet PO HS 07/25/18 06/28/19 History [Calmag Thins] Calcium Carb, Citrate/Vit D3 1 tablet PO HS 07/25/18 06/28/19 History [Calcium + D3 ER Tablet] Fexofenadine/Pseudoephedrine 1 each PO HS 07/25/18 06/28/19 History [Jud-D 12 Hour Tablet] Meloxicam 15 mg PO PRN PRN 07/25/18 06/28/19 History Rosuvastatin Calcium [Crestor] 10 mg PO HS 03/03/19 06/28/19 History Acetaminophen [Tylenol Regular 650 mg PO Q4H PRN tab 03/04/19 06/28/19 Rx Strength] C,E,Zinc,Copper 24/Om3/Lut/Remedios 1 cap PO DAILY 06/28/19 06/28/19 History [Ocuvite Softgel] Hospitalist History - Past Medical History Source: patient Cardiac: reports: HTN, Hyperlipidemia Pulmonary: reports: no pertinent history [employer]: reports: Other (Menigioma, chronic left sided weakness) Gastrointestinal: reports: no pertinent history Heme/Onc: reports: Cancer Hepatobiliary: reports: no pertinent history Psych: reports: no pertinent history Musculoskeletal: reports: no pertinent history Rheumatologic: reports: no pertinent history Infectious Disease: reports: no pertinent history ENT: reports: no pertinent history Renal/: reports: no pertinent history Endocrine: reports: no pertinent history Dermatology: reports: no pertinent history - Past Surgical History Past Surgical History: reports: Other (Mastectomy, Meningioma resection) - Family History Family History: reports: no pertinent history - Social History Alcohol: reports: None Drugs: reports: none Living Situation: With Family Activity level: independent ambulation - Exam General Appearance: NAD, awake alert Eye: PERRL, anicteric sclera ENT: normocephalic atraumatic, no oropharyngeal lesions, moist mucosa Neck: supple, symmetric, no JVD, no thyromegaly, no lymphadenopathy, no carotid bruit Heart: RRR, no murmur, no gallops, no rubs, normal peripheral pulses Respiratory: CTAB, no wheezes, no rales, no ronchi, normal chest expansion, no tachypnea, normal percussion Gastrointestinal: soft, non-tender, non-distended, normal bowel sounds, no palpable masses, no hepatomegaly, no splenomegaly, no bruit Extremities: no cyanosis, no clubbing, no edema Skin: normal turgor, no lesions, no rashes Neurological: cranial nerve grossly intact, normal sensation to touch, no focal deficits, no new deficit Neurological - other findings: diminished strength on left compared to right 4 to 5 Musculoskeletal: normal tone, no muscle wasting Psychiatric: normal affect, normal behavior, A&O x 3 Hospitalist Results - Labs Result Diagrams: 06/27/19 22:23 06/27/19 22:23 Lab results: WBC 9.5 thou/uL (4.8-10.8) 06/27/19 22:23 Hgb 16.5 g/dL (12.0-16.0) H 06/27/19 22:23 Hct 49.3 % (36.0-47.0) H 06/27/19 22:23 MCV 95.0 fL (78.0-98.0) 06/27/19 22:23 Plt Count 161 thou/uL (130-400) 06/27/19 22:23 Neutrophils % 74.9 % (42.0-75.0) 06/27/19 22:23 Sodium 143 mmol/L (136-145) 06/27/19 22:23 Potassium 3.9 mmol/L (3.5-5.1) 06/27/19 22:23 Chloride 100 mmol/L (98-107) 06/27/19 22:23 Carbon Dioxide 32 mmol/L (23-31) H 06/27/19 22:23 BUN 16 mg/dL (9.8-20.1) 06/27/19 22:23 Creatinine 0.60 mg/dL (0.6-1.1) 06/27/19 22:23 Glucose 103 mg/dL (83-110) 06/27/19 22:23 Calcium 10.8 mg/dL (7.8-10.44) H 06/27/19 22:23 Total Bilirubin 1.4 mg/dL (0.2-1.2) H 06/27/19 22:23 AST 41 U/L (5-34) H 06/27/19 22:23 ALT 32 U/L (8-55) 06/27/19 22:23 Alkaline Phosphatase 65 U/L (40-110) 06/27/19 22:23 Serum Total Protein 7.5 g/dL (6.0-8.3) 06/27/19 22:23 Albumin 4.4 g/dL (3.4-4.8) 06/27/19 22:23 - Radiology Interpretation CT scan - head Status: report reviewed by me Other Status: report reviewed by me Additional Comment: XR Hospitalist H&P A/P - Problem (1) Left-sided weakness Code(s): R53.1 - WEAKNESS Status: Acute Assessment and Plan: Acut on chronic (2) Vasogenic brain edema Code(s): G93.6 - CEREBRAL EDEMA Status: Acute Assessment and Plan: CT head reviewed, redemonstration of edema noted on calcified chronic mass (3) H/O malignant neoplasm of breast Code(s): Z85.3 - PERSONAL HISTORY OF MALIGNANT NEOPLASM OF BREAST Status: Chronic (4) HLD (hyperlipidemia) Code(s): E78.5 - HYPERLIPIDEMIA, UNSPECIFIED Status: Chronic Qualifiers: Hyperlipidemia type: unspecified Qualified Code(s): E78.5 - Hyperlipidemia , unspecified (5) HTN (hypertension) Code(s): I10 - ESSENTIAL (PRIMARY) HYPERTENSION Status: Chronic Qualifiers: Hypertension type: essential hypertension Qualified Code(s): I10 - Essential (primary) hypertension (6) h/o meningioma resection Status: Chronic - Plan Plan: Observation for now. Bedrest with ambulation assistance. Fall precautions. PT/OT eval and tx, appears that left sided weakness is worse than previus Consult placed to neurosurgery, reccs from ED are to start on keppra, decadron, and PPI Will continue other medication from home Consult case managemetn for d/c planning Code status: full ACP: Daughter is surrogate decision maker. Disposition: Coordinate PT/OT reccs. Neurosurgery reccs appreciated. Likely could benefit from some home health PT.
[2019-06-28] MEDS ORDERED: Hydrochlorothiazide 25 MG TAB PO SCH (11:15)
[2019-06-28] MEDS ORDERED: Lisinopril 20 MG TAB PO SCH (11:15)
[2019-06-28] MEDS ORDERED: levETIRAcetam 500 MG TAB PO SCH (12:15)
--- NOTE | 2019-06-28 12:37 | CON ---
DATE OF CONSULTATION: REFERRAL: Inpatient Medicine Service. REASON FOR EVALUATION: Meningioma. HISTORY OF PRESENT ILLNESS: Sandra Coburn is a very pleasant 73-year-old woman who is a patient of Dr. Gill. 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 With the sphenoid wing lesion, she underwent a surgical procedure last July. For the parasagittal lesion, she had stereotactic radiosurgery in September. Following all of this, she had fractionated radiation therapy to the surgical bed of the sphenoid wing to control any residual meningioma there. She tolerated all of those treatments very well. Over the past month since her treatment finished, she has had serial CT and MR images. There has been concern about some vasogenic edema around the parasagittal lesion in the right frontal lobe. Edema has been treated on and off with corticosteroids. With that history, the last night, she had a shaking episode. She describes most of the shaking in the left arm and leg and an attempt to walk was met with severe imbalance and a fall. When I ask her, she does feel like the right side was shaking to some extent, but the left was definitely the majority of it. Overnight in bed, she did not have any more severe episodes, but she had a sensory feeling in the left lower extremity that was rhythmic and perhaps a small tremor there. She was hesitant to go home because of her concern about this happening again. She is asymptomatic while I am talking to her, however. PERTINENT PAST MEDICAL HISTORY: Meningioma. PERTINENT PAST SURGICAL HISTORY: Craniotomy for right sphenoid wing meningioma and stereotactic radiosurgery for meningioma, all in 2018. ADDITIONAL HISTORY: Left breast cancer, hyperlipidemia, and hypertension. ADMISSION MEDICATIONS: 1. Vitamin C. 2. . 3. Zinc supplement. 4. Calcium with vitamin D. 5. Hydrochlorothiazide. 6. Lisinopril. 7. Ocuvite. 8. Crestor. 9. Jud. 10. Exemestane. 11. Meloxicam. SOCIAL HISTORY: Ms. Coburn lives alone. She has her daughter in town to help her with medical issues, but she left town yesterday. REVIEW OF SYMPTOMS: Otherwise negative. PHYSICAL EXAMINATION: GENERAL: I am seeing Ms. Coburn in her hospital room this morning. VITAL SIGNS: Two temperatures have been recorded overnight, neither which is febrile. Blood pressures have been in the 120s to 130s. NEUROLOGIC: As I speak with Ms. Coburn, she is wide awake. She answers questions appropriately. Her speech is fluent. There is no dysphagia or dysarthria. Cranial nerves are grossly intact. I do not see any lateralized motor deficits. There is no neglect. IMAGING FINDINGS: I reviewed CT imaging of the brain. The calcified parasagittal meningioma is still there and exactly the same size as it was before. The vasogenic edema might be slightly more. IMPRESSION: 1. Multiple meningioma, status post craniotomy, radiosurgery, and fractionated radiation. 2. Vasogenic edema. 3. Possible seizure activity. I asked Ms. Coburn to start a low dose of antiepileptic medication. Given her age, I think 250 mg of Keppra twice a day would be my starting recommendation, it can be increased to 500 twice a day if she continues to have episodes affecting the left side of her body. She will be started on Decadron with some protection for her gastric mucosa (Pepcid, Zantac, Protonix, or other). I did ask Ms. Coburn to call Martha at our office and schedule a followup visit with Dr. Gill, I do not plan on performing any more surgery or radiation for this meningioma. Job ID: [id number]
[2019-06-28] MEDS: levETIRAcetam 500 MG TAB PO SCH (20:09)
[2019-06-28] MEDS ORDERED: Rosuvastatin 10 MG TAB PO SCH (21:00)
[2019-06-29] MEDS ORDERED: Dexamethasone 4 MG TAB PO SCH (08:00)
[2019-06-29] MEDS ORDERED: Hydrochlorothiazide 25 MG TAB PO SCH (09:00)
[2019-06-29] MEDS ORDERED: Lisinopril 20 MG TAB PO SCH (09:00)
[2019-06-29] MEDS: levETIRAcetam 500 MG TAB PO SCH (10:16)
[2019-06-29 11:55] VITALS: TEMP 97.6
[2019-06-29 15:24] VITALS: BP 131/66
--- NOTE | 2019-06-29 18:23 | PDISCHARGE ---
Discharge - Disposition Disposition: HOME HEALTH - Ambulatory Orders Prescriptions: Dexamethasone [Decadron] 4 mg PO QAM-WM 7 Days #7 tab levETIRAcetam [Keppra] 250 mg PO BID 30 Days #60 tab Pantoprazole [Protonix] 40 mg PO DAILY 30 Days #30 tab - Patient Instructions Pre-Printed Education: Cerebral Edema, Adult, Tremor Care Plan Goals: See patient discharge instruction sheet for detailed teaching. Patient verbalizes understanding of medications and is able to verbalize follow-up care. See Discharge Plan for additional discharge information. Patient secured in private vehicle prior to departure. FOCUS: Transition from Acute Care after Discharge GOAL: Successful transition to care in the community YOUR TASKS: (1) review all information outlined in your discharge packet (2) follow any instructions outlined in your discharge packet (3) contact your primary care provider if you have questions or need additional assistance - Referrals and PCP Follow-Up Referrals and PCP Follow-Up: [facility] [Outside] (Home Health eval for nursing and physical therapy services.) Marquis Fang MD [Primary Care Provider] - 7 Days (CALL OFFICE TO SCHEDULE APPOINTMENT. BRING DISCHARGE PAPERWORK, INCLUDING CURRENT MEDICATION LIST.) Eddy Gill MD [Active] - 14 Days (CALL OFFICE TO SCHEDULE APPOINTMENT. BRING DISCHARGE PAPERWORK, INCLUDING CURRENT MEDICATION LIST.) - Nourishment Instructions Nourishment:: Regular Diet Course - Course Orders, Labs, Meds: Patient presenting with worsening left sided weakness. Apparently has chronic weakness related to calcified meningioma which she has. Admitted for vasogenic edema present around chronic meningioma. CT demonstrating redemonstration of vasogenic edema in the right frontal lobe secondary to a calcified anterior right parafalcine meningioma. Neurosurgery was called and advised trial of PO steroids, prophylactic keppra, and PPI therapy and follow up in outpatient. Favored to treat medically and conservatively at this time. At the time of discharge, patient was reportedly back to her baseline. Will follow up with neurosurgeon in the outpatient next week. Continue medication as reconciled upon discharge. (1) Left-sided weakness Code(s): R53.1 - WEAKNESS Status: Acute Assessment and Plan: Acut on chronic (2) Vasogenic brain edema Code(s): G93.6 - CEREBRAL EDEMA Status: Acute Assessment and Plan: CT head reviewed, redemonstration of edema noted on calcified chronic mass (3) H/O malignant neoplasm of breast Code(s): Z85.3 - PERSONAL HISTORY OF MALIGNANT NEOPLASM OF BREAST Status: Chronic (4) HLD (hyperlipidemia) Code(s): E78.5 - HYPERLIPIDEMIA, UNSPECIFIED Status: Chronic Qualifiers: Hyperlipidemia type: unspecified Qualified Code(s): E78.5 - Hyperlipidemia , unspecified (5) HTN (hypertension) Code(s): I10 - ESSENTIAL (PRIMARY) HYPERTENSION Status: Chronic Qualifiers: Hypertension type: essential hypertension Qualified Code(s): I10 - Essential (primary) hypertension (6) h/o meningioma resection Status: Chronic
--- NOTE | 2019-06-29 18:28 | PDOC.BPN ---
- Brief Progress Note DISCHARGE SUMMARY Discharge Patient Name: JIMI KHAN Date of : 1945 Patient Status: Observation Attending Provider: Sada Cates Date: 06/29/19 18:21 Initialization Date: 06/29/19 18:21 Discharge - Disposition Disposition: HOME HEALTH - Ambulatory Orders Prescriptions: Dexamethasone [Decadron] 4 mg PO QAM-WM 7 Days #7 tab levETIRAcetam [Keppra] 250 mg PO BID 30 Days #60 tab Pantoprazole [Protonix] 40 mg PO DAILY 30 Days #30 tab - Patient Instructions Pre-Printed Education: Cerebral Edema, Adult, Tremor Care Plan Goals: See patient discharge instruction sheet for detailed teaching. Patient verbalizes understanding of medications and is able to verbalize follow-up care. See Discharge Plan for additional discharge information. Patient secured in private vehicle prior to departure. FOCUS: Transition from Acute Care after Discharge GOAL: Successful transition to care in the community YOUR TASKS: (1) review all information outlined in your discharge packet (2) follow any instructions outlined in your discharge packet (3) contact your primary care provider if you have questions or need additional assistance - Referrals and PCP Follow-Up Referrals and PCP Follow-Up: [facility] [Outside] (Home Health eval for nursing and physical therapy services.) Marquis Fang MD [Primary Care Provider] - 7 Days (CALL OFFICE TO SCHEDULE APPOINTMENT. BRING DISCHARGE PAPERWORK, INCLUDING CURRENT MEDICATION LIST.) Eddy Gill MD [Active] - 14 Days (CALL OFFICE TO SCHEDULE APPOINTMENT. BRING DISCHARGE PAPERWORK, INCLUDING CURRENT MEDICATION LIST.) - Nourishment Instructions Nourishment:: Regular Diet - Exam General Appearance: NAD, awake alert Eye: PERRL, anicteric sclera ENT: normocephalic atraumatic, no oropharyngeal lesions, moist mucosa Neck: supple, symmetric, no JVD, no thyromegaly, no lymphadenopathy, no carotid bruit Heart: RRR, no murmur, no gallops, no rubs, normal peripheral pulses Respiratory: CTAB, no wheezes, no rales, no ronchi, normal chest expansion, no tachypnea, normal percussion Gastrointestinal: soft, non-tender, non-distended, normal bowel sounds, no palpable masses, no hepatomegaly, no splenomegaly, no bruit Extremities: no cyanosis, no clubbing, no edema Skin: normal turgor, no lesions, no rashes Neurological: cranial nerve grossly intact, normal sensation to touch, no focal deficits, no new deficit Neurological - other findings: diminished strength on left compared to right 4 to 5 Musculoskeletal: normal tone, no muscle wasting Psychiatric: normal affect, normal behavior, A&O x 3 Course - Course Orders, Labs, Meds: Patient presenting with worsening left sided weakness. Apparently has chronic weakness related to calcified meningioma which she has. Admitted for vasogenic edema present around chronic meningioma. CT demonstrating redemonstration of vasogenic edema in the right frontal lobe secondary to a calcified anterior right parafalcine meningioma. Neurosurgery was called and advised trial of PO steroids, prophylactic keppra, and PPI therapy and follow up in outpatient. Favored to treat medically and conservatively at this time. At the time of discharge, patient was reportedly back to her baseline. Will follow up with neurosurgeon in the outpatient next week. Continue medication as reconciled upon discharge. (1) Left-sided weakness Code(s): R53.1 - WEAKNESS Status: Acute Assessment and Plan: Acut on chronic (2) Vasogenic brain edema Code(s): G93.6 - CEREBRAL EDEMA Status: Acute Assessment and Plan: CT head reviewed, redemonstration of edema noted on calcified chronic mass (3) H/O malignant neoplasm of breast Code(s): Z85.3 - PERSONAL HISTORY OF MALIGNANT NEOPLASM OF BREAST Status: Chronic (4) HLD (hyperlipidemia) Code(s): E78.5 - HYPERLIPIDEMIA, UNSPECIFIED Status: Chronic Qualifiers: Hyperlipidemia type: unspecified Qualified Code(s): E78.5 - Hyperlipidemia , unspecified (5) HTN (hypertension) Code(s): I10 - ESSENTIAL (PRIMARY) HYPERTENSION Status: Chronic Qualifiers: Hypertension type: essential hypertension Qualified Code(s): I10 - Essential (primary) hypertension (6) h/o meningioma resection Status: Chronic
== END 2019-06-29 17:11 | disposition home health service (06) ==
LOC: ERS 16:17 → ERHOLD 06-28 00:28 → 2NO 06-28 01:30
PROVIDERS: ADMIT Hospitalist; ATTEND Emergency Medicine
DX: D32.0 Benign neoplasm of cerebral meninges (principal); R53.1 Weakness; G93.6 Cerebral edema; I10 Essential (primary) hypertension; E78.5 Hyperlipidemia, unspecified; Z85.3 Personal history of malignant neoplasm of breast; Z79.899 Other long term (current) drug therapy; Z88.5 Allergy status to narcotic agent; Z98.890 Other specified postprocedural states; W19.XXXA Unspecified fall, initial encounter
CPT/HCPCS: 36415; 70450; 72170; 80053; 85025; 93005; G0378; J1100; J8540

== ENCOUNTER 2019-07-03 08:39 | Outpatient (CLI) | payer MEDICARE, BC ==
--- NOTE | 2019-07-03 12:04 | CT ---
CT CHEST AND ABDOMEN WITH IV AND ORAL CONTRAST: Date: 07/03/2019 HISTORY: Cough. Abdomen pain and distention. Prior breast cancer. COMPARISON: 07/12/2013 and 04/15/2019. FINDINGS: Mild parenchymal scarring at the left posterior lung base. No lobar consolidation, pleural fluid, or pneumothorax. No enlarged lymph nodes evident within the mediastinum. Healed granulomatous disease as evidenced by calcified mediastinal lymph nodes. Left breast surgically absent. Old right rib fractures. Small hiatal hernia. Solid organs of the abdomen are unremarkable. The pelvis was not imaged. The inferiormost image shows a small amount of fat protruding through an anterior abdominal wall hernia. IMPRESSION: 1. No acute abnormalities are demonstrated to explain the patient's symptoms. 2. Small hiatal hernia. POS: SELAM
[2019-07-03] MEDS ORDERED: Iopamidol 370 76% 50 ML VIAL FS ONE (13:54)
[2019-07-03] MEDS ORDERED: Iopamidol 370 76% 100 ML VIAL ONE (13:54)
== END 2019-07-03 08:40 | disposition home or self-care (01) ==
LOC: CT 08:39
PROVIDERS: ATTEND Family Medicine
DX: R14.0 Abdominal distension (gaseous) (principal); R05 Cough; C50.919 Malignant neoplasm of unspecified site of unspecified female breast; K44.9 Diaphragmatic hernia without obstruction or gangrene
CPT/HCPCS: 71260; 74160; Q9967

== ENCOUNTER 2019-08-06 06:22 | Outpatient (CLI) | payer MEDICARE, BC ==
--- NOTE | 2019-08-06 10:53 | RAD ---
EXAM: Two views chest PROVIDED CLINICAL HISTORY: None COMPARISON: None FINDINGS: Cardiac and mediastinal silhouette appears within normal limits. Lungs appear free of significant opa city. No pleural fluid or pneumothorax apparent. Vascular calcification. IMPRESSION: No evidence for an acute cardiopulmonary process.
[2019-08-06 13:11] LABS: Anion Gap 17 mmol/L (10-20); BUN (Urea Nitrogen) 14 mg/dL (9.8-20.1); Calc. Creatinine Clearance 0 mL/min (70-130); Calcium 9.9 mg/dL (7.8-10.44); Carbon Dioxide 20 mmol/L (23-31); Chloride 103 mmol/L (98-107); Estimated GFR-MDRD Greater than 90; Glucose 95 mg/dL (83-110); Potassium 4.3 mmol/L (3.5-5.1); Sodium 136 mmol/L (136-145)
[2019-08-06 13:29] LABS: #Monocytes 1.4 thou/uL (0.11-0.59); #Neutrophils 11.5 thou/uL (1.40-6.50); %Eosinophils 0.3 % (0.0-10.0); %Lymphocytes 7.1 % (21.0-51.0); %Neutrophils 82.5 % (42.0-75.0); Hemoglobin 17.2 g/dL (12.0-16.0); MDiff Complete? YES; Mean Corpuscular HGB CONC 33.9 g/dL (32.0-36.0); Mean Corpuscular Hemoglobin 32.7 pg (27.0-31.0); Mean Corpuscular Volume 96.5 fL (78.0-98.0); Mean Platelet Volume 8.5 fL (7.4-10.4); Platelet Count 111 thou/uL (130-400); Platelet Morphology Comment Appears Decreased; Polychromasia SLIGHT = 2-3 cells (100X) (0-2/hpf); RBC Distribution Width 13.8 % (11.5-14.5); Red Blood Cell (RBC) Count 5.27 mill/uL (4.20-5.40); White Blood Cell (WBC) Count 13.9 thou/uL (4.8-10.8)
== END 2019-08-06 06:23 | disposition home or self-care (01) ==
LOC: LABBT 06:22
PROVIDERS: ATTEND Specialist
DX: Z01.818 Encounter for other preprocedural examination (principal); K42.9 Umbilical hernia without obstruction or gangrene
CPT/HCPCS: 71046; 80048; 85025

== ENCOUNTER 2019-08-07 10:45 | Day surgery (SDC) | payer MEDICARE, BC ==
[2019-08-06 09:57] VITALS: BMI 34.7
[2019-08-07] MEDS ORDERED: Ketorolac Tromethamine 30 MG/ML VIAL ONE (10:54)
[2019-08-07] MEDS ORDERED: PROPOFOL 200 MG/20 ML VIAL ONE (11:01)
[2019-08-07] MEDS ORDERED: Ondansetron PF 4 MG/2 ML Vial ONE (11:01)
[2019-08-07] MEDS ORDERED: Rocuronium Bromide 10 MG/ML (10ML VIAL) ONE (11:01)
[2019-08-07] MEDS ORDERED: Dexamethasone 20 MG/5 ML VIAL ONE (11:01)
[2019-08-07] MEDS ORDERED: Lidocaine 1% PF 5 ML VIAL ONE (11:01)
[2019-08-07] MEDS ORDERED: Fentanyl 100 MCG/2 ML VIAL ONE (11:14)
[2019-08-07] MEDS ORDERED: Lidocaine 1% w/Epinephrine 1:100K 20 ML VIAL ONE (11:14)
[2019-08-07] MEDS ORDERED: Bupivacaine 0.25% HCL 30 ML VIAL ONE (11:14)
[2019-08-07] MEDS ORDERED: SUGAMMADEX SODIUM 200 MG/2 ML VIAL ONE (12:11)
--- NOTE | 2019-08-08 10:29 | OP ---
DATE OF PROCEDURE: 08/07/2019 PREOPERATIVE DIAGNOSIS: Umbilical hernia. POSTOPERATIVE DIAGNOSIS: Umbilical hernia. PROCEDURE PERFORMED: Umbilical hernia repair with mesh using a 6-cm Ventralex mesh patch. ANESTHESIA: General with laryngeal mask airway. INDICATIONS FOR PROCEDURE: The patient is a 73-year-old obese white female. She presents with a visible and symptomatic umbilical hernia. She is taken to the operating room at this time for repair. DESCRIPTION OF OPERATION: Informed consent was obtained. The patient was taken to the operating room, where general anesthesia was obtained with the patient in supine position. Abdomen was prepped with ChloraPrep and draped in sterile fashion. Local anesthetic was infiltrated using 0.25% Marcaine with epinephrine. A curvilinear infraumbilical incision was created and dissection was carried through skin and subcutaneous tissue. The umbilicus was dissected off the underlying hernia sac and fascia and reflected superiorly. The hernia sac was dissected circumferentially. The base of the hernia sac was incised to gain access to the preperitoneal space. The preperitoneal space was developed with blunt dissection digitally. The defect was at least 2 cm in diameter. I obtained a 6-cm Ventralex mesh patch. This was deployed in the preperitoneal space and it pulled snugly against the posterior fascia. The tails of the patch were secured superiorly and inferiorly with single interrupted sutures of 0 Prolene. The lateral aspects of the defect were closed with single interrupted sutures of 0 Prolene, obtaining bites of the anterior leaflet of the mesh patch. The umbilicus was then secured down to the fascia with 2 interrupted sutures of 3-0 Vicryl. The remainder of the wound was closed in layers of 3-0 and 4-0 Monocryl. Dermabond was placed externally. A compression dressing was applied using cotton balls and a Tegaderm dressing. There were no complications. The patient tolerated the procedure well and was taken to the recovery room in stable condition. Job ID: [id number]
== END 2019-08-07 14:52 | disposition home or self-care (01) ==
LOC: SDC 10:45
PROVIDERS: ATTEND Specialist
PROC: 0WUF0JZ Supplement Abdominal Wall with Synthetic Substitute, Open Approach (ICD-10-PCS; principal; 2019-08-07)
DX: K42.9 Umbilical hernia without obstruction or gangrene (principal); I10 Essential (primary) hypertension; E78.5 Hyperlipidemia, unspecified; M19.90 Unspecified osteoarthritis, unspecified site; M85.80 Other specified disorders of bone density and structure, unspecified site; E66.9 Obesity, unspecified; Z68.34 Body mass index [BMI] 34.0-34.9, adult; Z79.82 Long term (current) use of aspirin; Z79.899 Other long term (current) drug therapy; Z88.5 Allergy status to narcotic agent
CPT/HCPCS: J0690; J1100; J1885; J2001; J2405; J2704; J3010; S0020

== ENCOUNTER 2021-10-25 22:08 | Emergency (ER) | payer MEDICARE, BC ==
[2021-10-25 23:12] LABS: #Eosinphils 0.1 thou/uL (0.0-0.7); #Lymphocytes 1.5 thou/uL (1.20-3.40); #Monocytes 0.6 thou/uL (0.11-0.59); #Neutrophils 3.7 thou/uL (1.40-6.50); %Basophils 0.5 % (0.0-1.0); %Eosinophils 1.7 % (0.0-10.0); %Lymphocytes 25.1 % (21.0-51.0); %Monocytes 10.7 % (0.0-10.0); Hemoglobin 12.2 g/dL (12.0-16.0); Mean Corpuscular Hemoglobin 27.7 pg (27.0-31.0); Mean Corpuscular Volume 86.6 fL (78.0-98.0); Mean Platelet Volume 7.7 fL (7.4-10.4); Platelet Count 222 thou/uL (130-400); RBC Distribution Width 14.6 % (11.5-14.5); Red Blood Cell (RBC) Count 4.39 mill/uL (4.20-5.40); White Blood Cell (WBC) Count 5.9 thou/uL (4.8-10.8)
[2021-10-25 23:23] LABS: ALT (SGPT) 20 U/L (8-55); AST (SGOT) 26 U/L (5-34); Alkaline Phosphatase 70 U/L (40-110); Anion Gap 13 mmol/L (10-20); BUN (Urea Nitrogen) 19 mg/dL (9.8-20.1); Bilirubin, Total 0.5 mg/dL (0.2-1.2); Calc. Creatinine Clearance 0 mL/min (70-130); Calcium 9.2 mg/dL (7.8-10.44); Carbon Dioxide 32 mmol/L (23-31); Chloride 100 mmol/L (98-107); Globulin 2.8 g/dL (2.4-3.5); Glucose 91 mg/dL (83-110); Lipase 61 U/L (8-78); Protein, Total 6.8 g/dL (5.8-8.1); Sodium 141 mmol/L (136-145)
[2021-10-26 00:44] LABS: Bacteria/HPF None Seen HPF (None Seen); Bilirubin Negative (Negative); Blood, Urine Negative (Negative); Clarity Clear (Clear); Glucose, Urine (Dipstick) Normal (Negative); Ketone, Urine Negative (Negative); Leukocyte 250 Leu/uL (Negative); Nitrite Negative (Negative); Protein, Urine (Dipstick) Negative (Neg-Trace); RBC/HPF 0-3 HPF (0-3); Squamous Epithelial 0-3 HPF (0-3); Urobilinogen Normal mg/dL (Less than 2); WBC/HPF 21-50 HPF (0-3)
== END 2021-10-26 01:44 | disposition home or self-care (01) ==
LOC: ERS 22:08
DX: N30.00 Acute cystitis without hematuria (principal); E78.5 Hyperlipidemia, unspecified; I10 Essential (primary) hypertension
CPT/HCPCS: 71045; 74177; 80053; 81003; 81015; 83690; 84484; 85025; 87086; 93005

== ENCOUNTER 2022-03-23 09:50 | Outpatient (CLI) | payer MEDICARE, BC | END 2022-03-23 09:51 | disposition home or self-care (01) | LOC: TBSIIMAG 09:50 | PROVIDERS: ATTEND Neurological Surgery | DX: D49.6 Neoplasm of unspecified behavior of brain (principal) | CPT/HCPCS: 70553 ==

== ENCOUNTER 2023-03-16 10:04 | Outpatient (CLI) | payer MEDICARE, BC | END 2023-03-16 10:05 | disposition home or self-care (01) | LOC: BICMRI 10:04 | PROVIDERS: ATTEND Family Medicine | DX: M25.552 Pain in left hip (principal); M16.0 Bilateral primary osteoarthritis of hip; M65.862 Other synovitis and tenosynovitis, left lower leg ==

== ENCOUNTER 2023-04-19 05:51 | Emergency (ER) | payer MEDICARE, BC | END 2023-04-19 07:26 | disposition home or self-care (01) | LOC: ERS 05:51 | DX: S39.012A Strain of muscle, fascia and tendon of lower back, initial encounter (principal); M62.830 Muscle spasm of back; I10 Essential (primary) hypertension; X58.XXXA Exposure to other specified factors, initial encounter ==

== ENCOUNTER 2023-10-20 11:01 | Day surgery (SDC) | payer MEDICARE ==
[2023-10-18 15:17] VITALS: BMI 33.0
[2023-10-20] MEDS ORDERED: Acetaminophen 500 MG TAB ONE (11:44)
[2023-10-20] MEDS ORDERED: EPINEPHrine 1 MG/ML VIAL ONE (12:32)
[2023-10-20] MEDS ORDERED: Bupivacaine PF 0.5% 30 ML VIAL ONE (12:32)
[2023-10-20] MEDS ORDERED: Ketorolac Tromethamine 30 MG (1 mL) VIAL ONE (12:36)
[2023-10-20] MEDS ORDERED: PROPOFOL 20 ML ONE (13:08)
[2023-10-20] MEDS ORDERED: fentaNYL PF 100 MCG/2 ML SYRINGE ONE (13:08)
[2023-10-20] MEDS ORDERED: Rocuronium Bromide 10 MG/ML (10ML VIAL) ONE (13:12)
[2023-10-20] MEDS ORDERED: Lidocaine 1% PF 5 ML VIAL ONE (13:12)
[2023-10-20] MEDS ORDERED: CEFAZOLIN 2 GM VIAL ONE (13:14)
[2023-10-20] MEDS ORDERED: Sodium Chloride 0.9% 100 ML ONE (13:15)
[2023-10-20] MEDS ORDERED: Dexamethasone 20 MG/5 ML VIAL ONE (13:46)
[2023-10-20] MEDS ORDERED: Ondansetron PF 4 MG/2 ML Vial ONE (13:46)
[2023-10-20] MEDS ORDERED: Dexamethasone 4 mg/ml Vial ONE (13:47)
[2023-10-20] MEDS ORDERED: PHENYLEPHRINE-NS 100 MCG/ML 10 ML SYRINGE ONE (14:54)
[2023-10-20] MEDS ORDERED: SUGAMMADEX SODIUM 200 MG/2 ML VIAL ONE (15:52)
[2023-10-20] MEDS ORDERED: HYDROmorphone 2 MG/ML VIAL ONE (16:04)
== END 2023-10-20 17:50 | disposition home or self-care (01) ==
LOC: SDC 11:01
PROVIDERS: ATTEND Specialist
PROC: 0WUF0JZ Supplement Abdominal Wall with Synthetic Substitute, Open Approach (ICD-10-PCS; principal; 2023-10-20)
DX: K43.9 Ventral hernia without obstruction or gangrene (principal); I10 Essential (primary) hypertension; E78.5 Hyperlipidemia, unspecified; Z85.3 Personal history of malignant neoplasm of breast; M19.90 Unspecified osteoarthritis, unspecified site; I36.0 Nonrheumatic tricuspid (valve) stenosis; Z90.89 Acquired absence of other organs; Z98.890 Other specified postprocedural states; Z87.19 Personal history of other diseases of the digestive system; Z90.710 Acquired absence of both cervix and uterus; Z88.5 Allergy status to narcotic agent; Z79.899 Other long term (current) drug therapy
CPT/HCPCS: 49595; C1781; J0171; J0665; J1100; J1170; J1885; J2405; J2704; J3490

== ENCOUNTER 2024-04-13 10:01 | Outpatient (CLI) | payer MEDICARE | END 2024-04-13 10:02 | disposition home or self-care (01) | LOC: SCSMRI 10:01 | PROVIDERS: ATTEND Neurological Surgery | DX: C71.9 Malignant neoplasm of brain, unspecified (principal) | CPT/HCPCS: 36415; 70553; 76376; 82565 ==

== ENCOUNTER → 2024-05-02 | Outpatient (CLI) | payer MEDICARE | LOC: SCSMRI 12:38 | PROVIDERS: ATTEND Neurological Surgery | DX: M47.26 Other spondylosis with radiculopathy, lumbar region (principal); S22.089A Unspecified fracture of T11-T12 vertebra, initial encounter for closed fracture; M48.04 Spinal stenosis, thoracic region | CPT/HCPCS: 72148 ==

== ENCOUNTER 2024-05-22 03:26 | Emergency (ER) | payer MEDICARE ==
[2024-05-22 04:44] LABS: #Basophils 0.05 10x3/uL (0.0-0.2); %Basophils 0.9 % (0.0-1.0); %Eosinophils 1.5 % (0.0-10.0); %Lymphocytes 31.8 % (21.0-51.0); %Monocytes 13.5 % (0.0-10.0); %Neutrophils 52.1 % (42.0-75.0); Hematocrit 48.3 % (36.0-47.0); Hemoglobin 15.6 g/dL (12.0-16.0); Mean Corpuscular HGB CONC 32.3 g/dL (32.0-36.0); Mean Corpuscular Hemoglobin 28.3 pg (27.0-31.0); Mean Corpuscular Volume 87.5 fL (78.0-98.0); Mean Platelet Volume 10.1 fL (7.4-10.4); Platelet Count 162 10x3/uL (130-400); RBC Distribution Width 17.9 % (11.5-14.5); Red Blood Cell (RBC) Count 5.52 mill/uL (4.20-5.40)
[2024-05-22 04:49] LABS: Anion Gap 14 mmol/L (10-20); BUN (Urea Nitrogen) 16 mg/dL (9.8-20.1); Calc. Creatinine Clearance 0 mL/min (70-130); Calcium 9.9 mg/dL (7.8-10.44); Carbon Dioxide 29 mmol/L (23-31); Chloride 103 mmol/L (98-107); Estimated GFR 91; Glucose 101 mg/dL (83-110); Potassium 3.4 mmol/L (3.5-5.1); Sodium 143 mmol/L (136-145)
== END 2024-05-22 05:20 | disposition home or self-care (01) ==
LOC: ERS 03:26
DX: M79.604 Pain in right leg (principal); R60.0 Localized edema; I10 Essential (primary) hypertension; I87.8 Other specified disorders of veins
CPT/HCPCS: 36415; 80048; 85025; 99283